=== PATIENT | male | born 1935 | race Caucasian/White ===

== ENCOUNTER 2017-08-04 17:29 | Emergency (ER) | payer MEDICARE, OTHER ==
[~2017-08-04] VITALS: Ht 172.7 cm; Wt 68.0 kg
[~2017-08-04 17:29] MED LIST: ALBU90OI INH; ALPR.5 PO; ANORO ELLIPTA1 EACH INH; DICL50ER PO; Prednisone20 MG PO; Tamiflu75 MG PO; Ventolin Soln3 ML INH; Ventolin5 MG/1 ML INH; Zithromax250 MG PO
[2017-08-04] MEDS ORDERED: Zithromax250 MG PO (20:01)
[2017-08-04] MEDS ORDERED: PRED20 PO (20:01)
== END 2017-08-04 20:08 | disposition home or self-care (01) ==
LOC: ER 17:29
DX: J44.1 Chronic obstructive pulmonary disease with (acute) exacerbation (principal); Z88.6 Allergy status to analgesic agent; Z88.1 Allergy status to other antibiotic agents; Z88.8 Allergy status to other drugs, medicaments and biological substances; Z79.899 Other long term (current) drug therapy
CPT/HCPCS: 71046; 96372; 99283; J2930

== ENCOUNTER 2017-09-03 22:28 | Emergency (ER) | payer MEDICARE, OTHER ==
[~2017-09-03] VITALS: Ht 170.2 cm; Wt 65.8 kg
[~2017-09-03 22:28] MED LIST changes: +PRED20 PO
[2017-09-03 22:45] LABS: PCO2 Arterial 37.2 mmHg (35-45); PO2 Arterial 68.2 mmHg (80-100); pH Blood Arterial 7.42 (7.35-7.45)
[2017-09-03 22:49] LABS: BASOPHILS ABSOLUTE AUTO 0.07 K/mm3 (0.00-0.23); BASOPHILS PERCENT AUTO 1 % (0-2); EOSINOPHILS ABSOLUTE AUTO 0.74 K/mm3 (0.00-0.68); EOSINOPHILS PERCENT AUTO 8 % (0-6); Hematocrit 44.2 % (37.0-53.0); Hemoglobin 15.1 g/dL (13.5-17.5); IMMATURE GRAN ABSOLUTE AUTO 0.01 K/mm3 (0.00-0.10); IMMATURE GRAN PERCENT AUTO 0 % (0-1); LYMPHOCYTES ABSOLUTE AUTO 3.34 K/mm3 (0.84-5.20); LYMPHOCYTES PERCENT AUTO 37 % (21-46); MONOCYTES ABSOLUTE AUTO 1.07 K/mm3 (0.16-1.47); MONOCYTES PERCENT AUTO 12 % (4-13); Mean Corpuscular HGB 32.1 pg (26.0-34.0); Mean Corpuscular HGB Conc 34.2 g/dL (31.5-36.5); Mean Corpuscular Volume 94 fL (80-100); Mean Platelet Volume 9.9 fL (9.1-12.4); NEUTROPHILS ABSOLUTE AUTO 3.81 K/mm3 (1.96-9.15); NEUTROPHILS PERCENT AUTO 42 % (41-73); Platelet Count 314 K/mm3 (150-400); RDW Coefficient Variation 11.9 % (11.7-14.2); RDW Standard Deviation 41.4 fL (35.1-46.3); White Blood Cell Count 9.04 K/mm3 (4.00-11.30)
[2017-09-03 23:15] LABS: Alanine Aminotransfer (ALT/SGP 32 U/L (12-78); Albumin, Blood 3.8 g/dL (3.4-5.0); Alk Phos 99 U/L (50-136); Anion Gap 8 mmol/L (6-16); Aspartate Aminotrans (AST/SGOT 24 U/L (12-37); Bilirubin, Total 1.2 mg/dL (0.1-1.0); Blood Urea Nitrogen 19 mg/dL (8-24); Bun/Creatinine Ratio 17.9 (12.0-20.0); CO2, Blood 27 mmol/L (21-32); Calcium, Blood 9.3 mg/dL (8.5-10.1); Chloride, Blood 104 mmol/L (98-108); Creatinine, Blood 1.06 mg/dL (0.60-1.20); Globulin, Blood 3.8 g/dL (2.2-4.0); Glomerular Filtration Rate >60 (60-); Glucose, Blood 71 mg/dL (70-99); Potassium, Blood 4.1 mmol/L (3.5-5.5); Sodium, Blood 139 mmol/L (136-145); Total Protein, Blood 7.6 g/dL (6.4-8.2); Troponin I <0.015 ng/mL (0.000-0.040)
[2017-09-03] MEDS ORDERED: Prednisone20 MG PO (23:53)
[2017-09-04] MEDS ORDERED: Ativan0.5 MG PO (00:49)
== END 2017-09-04 01:00 | disposition home or self-care (01) ==
LOC: ER 22:28
PROVIDERS: Physician Assistant
DX: J44.1 Chronic obstructive pulmonary disease with (acute) exacerbation (principal); Z88.6 Allergy status to analgesic agent; Z88.8 Allergy status to other drugs, medicaments and biological substances; Z88.1 Allergy status to other antibiotic agents; Z79.899 Other long term (current) drug therapy; Z79.52 Long term (current) use of systemic steroids
CPT/HCPCS: 36415; 36600; 71045; 80053; 82803; 83880; 84484; 85025; 93005; 93010; 94640; 99283; J7030

== ENCOUNTER 2017-11-02 15:05 | Emergency (ER) | payer MEDICARE, OTHER ==
[~2017-11-02] VITALS: Ht 170.2 cm; Wt 68.0 kg
[~2017-11-02 15:05] MED LIST changes: +Ativan0.5 MG PO
[2017-11-02 15:50] LABS: BASOPHILS ABSOLUTE AUTO 0.07 K/mm3 (0.00-0.23); BASOPHILS PERCENT AUTO 1 % (0-2); EOSINOPHILS PERCENT AUTO 9 % (0-6); Hemoglobin 13.7 g/dL (13.5-17.5); IMMATURE GRAN ABSOLUTE AUTO 0.01 K/mm3 (0.00-0.10); IMMATURE GRAN PERCENT AUTO 0 % (0-1); LYMPHOCYTES ABSOLUTE AUTO 1.84 K/mm3 (0.84-5.20); LYMPHOCYTES PERCENT AUTO 24 % (21-46); MONOCYTES ABSOLUTE AUTO 0.79 K/mm3 (0.16-1.47); MONOCYTES PERCENT AUTO 10 % (4-13); Mean Corpuscular HGB 32.1 pg (26.0-34.0); Mean Corpuscular HGB Conc 34.3 g/dL (31.5-36.5); Mean Corpuscular Volume 94 fL (80-100); Mean Platelet Volume 10.6 fL (9.1-12.4); NEUTROPHILS ABSOLUTE AUTO 4.38 K/mm3 (1.96-9.15); NEUTROPHILS PERCENT AUTO 56 % (41-73); Platelet Count 270 K/mm3 (150-400); RDW Coefficient Variation 11.9 % (11.7-14.2); RDW Standard Deviation 41.1 fL (35.1-46.3); Red Blood Cell Count 4.27 M/mm3 (4.30-5.90); White Blood Cell Count 7.79 K/mm3 (4.00-11.30)
[2017-11-02 16:11] LABS: Alanine Aminotransfer (ALT/SGP 20 U/L (12-78); Albumin, Blood 3.7 g/dL (3.4-5.0); Albumin/Globulin Ratio 1.2 (0.8-1.8); Alk Phos 89 U/L (50-136); Anion Gap 5 mmol/L (6-16); Aspartate Aminotrans (AST/SGOT 23 U/L (12-37); Bilirubin, Total 1.8 mg/dL (0.1-1.0); Blood Urea Nitrogen 14 mg/dL (8-24); Bun/Creatinine Ratio 13.7 (12.0-20.0); CO2, Blood 26 mmol/L (21-32); Chloride, Blood 107 mmol/L (98-108); Creatinine, Blood 1.02 mg/dL (0.60-1.20); Globulin, Blood 3.2 g/dL (2.2-4.0); Glomerular Filtration Rate >60 (60-); Glucose, Blood 97 mg/dL (70-99); Sodium, Blood 138 mmol/L (136-145); Total Protein, Blood 6.9 g/dL (6.4-8.2); Troponin I <0.015 ng/mL (0.000-0.040)
[2017-11-02 18:06] LABS: PCO2 Arterial 36 mmHg (35-45); PO2 Arterial 67 mmHg (80-100); pH Blood Arterial 7.45 (7.35-7.45)
[2017-11-02] MEDS ORDERED: Prednisone20 MG PO (18:52)
[2017-11-02] MEDS ORDERED: Mucinex600 MG PO (18:52)
[2017-11-02] MEDS ORDERED: BENZ100A PO (19:08)
== END 2017-11-02 19:44 | disposition home or self-care (01) ==
LOC: ER 15:05
PROVIDERS: Emergency Medicine; Physician Assistant
DX: J44.1 Chronic obstructive pulmonary disease with (acute) exacerbation (principal); Z88.6 Allergy status to analgesic agent; Z88.8 Allergy status to other drugs, medicaments and biological substances; Z88.1 Allergy status to other antibiotic agents; Z79.899 Other long term (current) drug therapy; Z79.51 Long term (current) use of inhaled steroids; Z87.891 Personal history of nicotine dependence
CPT/HCPCS: 36415; 36600; 71046; 80053; 82803; 83880; 84484; 85025; 93005; 93010; 94640; J2930

== ENCOUNTER 2018-08-25 23:22 | Emergency (ER) | payer MEDICARE, OTHER ==
[~2018-08-25] VITALS: Ht 170.2 cm; Wt 68.0 kg
[~2018-08-25 23:22] MED LIST changes: +BENZ100A PO; +Mucinex600 MG PO
[2018-08-25] MEDS ORDERED: BUDE6HFA INH (23:46)
[2018-08-25 23:50] LABS: BASOPHILS ABSOLUTE AUTO 0.03 K/mm3 (0.00-0.23); BASOPHILS PERCENT AUTO 0 % (0-2); EOSINOPHILS ABSOLUTE AUTO 0.01 K/mm3 (0.00-0.68); EOSINOPHILS PERCENT AUTO 0 % (0-6); Hematocrit 40.6 % (37.0-53.0); Hemoglobin 13.8 g/dL (13.5-17.5); IMMATURE GRAN ABSOLUTE AUTO 0.06 K/mm3 (0.00-0.10); IMMATURE GRAN PERCENT AUTO 0 % (0-1); LYMPHOCYTES ABSOLUTE AUTO 1.33 K/mm3 (0.84-5.20); LYMPHOCYTES PERCENT AUTO 8 % (21-46); MONOCYTES ABSOLUTE AUTO 1.11 K/mm3 (0.16-1.47); MONOCYTES PERCENT AUTO 7 % (4-13); Mean Corpuscular HGB 32.3 pg (26.0-34.0); Mean Corpuscular Volume 95 fL (80-100); Mean Platelet Volume 10.3 fL (9.1-12.4); NEUTROPHILS ABSOLUTE AUTO 14.26 K/mm3 (1.96-9.15); NEUTROPHILS PERCENT AUTO 85 % (41-73); Platelet Count 392 K/mm3 (150-400); RDW Coefficient Variation 11.8 % (11.7-14.2); RDW Standard Deviation 40.9 fL (35.1-46.3); Red Blood Cell Count 4.27 M/mm3 (4.30-5.90)
[2018-08-26 00:05] LABS: Alanine Aminotransfer (ALT/SGP 19 U/L (12-78); Albumin, Blood 3.9 g/dL (3.4-5.0); Alk Phos 97 U/L (50-136); Anion Gap 7 mmol/L (6-16); Aspartate Aminotrans (AST/SGOT 22 U/L (12-37); Bilirubin, Total 0.7 mg/dL (0.1-1.0); Blood Urea Nitrogen 28 mg/dL (8-24); Bun/Creatinine Ratio 25.9 (12.0-20.0); CO2, Blood 26 mmol/L (21-32); Calcium, Blood 9.8 mg/dL (8.5-10.1); Chloride, Blood 102 mmol/L (98-108); Creatinine, Blood 1.08 mg/dL (0.60-1.20); Globulin, Blood 3.8 g/dL (2.2-4.0); Glomerular Filtration Rate >60 (60-); Glucose, Blood 146 mg/dL (70-99); Potassium, Blood 4.5 mmol/L (3.5-5.5); Sodium, Blood 135 mmol/L (136-145); Total Protein, Blood 7.7 g/dL (6.4-8.2); Troponin I <0.015 ng/mL (0.000-0.040)
== END 2018-08-26 00:40 | disposition home or self-care (01) ==
LOC: ER 23:22
PROVIDERS: Physician Assistant
DX: F41.0 Panic disorder [episodic paroxysmal anxiety] (principal); J43.9 Emphysema, unspecified; Z87.891 Personal history of nicotine dependence; Z90.79 Acquired absence of other genital organ(s)
CPT/HCPCS: 71046; 80053; 84484; 85025; 93005; 93010; 99284-25

== ENCOUNTER → 2018-09-10 | Outpatient (CLI) | payer OTHER ==
[~2018-09-10] MED LIST changes: +ALPR.25 PO; +AZIT250 PO; +BUDE6HFA INH
[2018-09-10 11:24] LABS: BASOPHILS ABSOLUTE AUTO 0.04 K/mm3 (0.00-0.23); BASOPHILS PERCENT AUTO 0 % (0-2); EOSINOPHILS ABSOLUTE AUTO 0.16 K/mm3 (0.00-0.68); EOSINOPHILS PERCENT AUTO 2 % (0-6); Hematocrit 42.4 % (37.0-53.0); Hemoglobin 14.8 g/dL (13.5-17.5); IMMATURE GRAN ABSOLUTE AUTO 0.06 K/mm3 (0.00-0.10); IMMATURE GRAN PERCENT AUTO 1 % (0-1); LYMPHOCYTES ABSOLUTE AUTO 1.16 K/mm3 (0.84-5.20); LYMPHOCYTES PERCENT AUTO 11 % (21-46); MONOCYTES ABSOLUTE AUTO 0.85 K/mm3 (0.16-1.47); MONOCYTES PERCENT AUTO 8 % (4-13); Mean Corpuscular HGB 32.8 pg (26.0-34.0); Mean Corpuscular HGB Conc 34.9 g/dL (31.5-36.5); Mean Corpuscular Volume 94 fL (80-100); Mean Platelet Volume 10.2 fL (9.1-12.4); NEUTROPHILS ABSOLUTE AUTO 8.24 K/mm3 (1.96-9.15); NEUTROPHILS PERCENT AUTO 78 % (41-73); Platelet Count 239 K/mm3 (150-400); RDW Coefficient Variation 12.2 % (11.7-14.2); RDW Standard Deviation 42.4 fL (35.1-46.3); Red Blood Cell Count 4.51 M/mm3 (4.30-5.90); White Blood Cell Count 10.51 K/mm3 (4.00-11.30)
[2018-09-10 11:41] LABS: Alanine Aminotransfer (ALT/SGP 20 U/L (12-78); Albumin, Blood 3.5 g/dL (3.4-5.0); Albumin/Globulin Ratio 1.1 (0.8-1.8); Alk Phos 69 U/L (40-126); Anion Gap 10 mmol/L (6-16); Aspartate Aminotrans (AST/SGOT 23 U/L (12-37); Blood Urea Nitrogen 22 mg/dL (8-24); CO2, Blood 27 mmol/L (21-32); Calcium, Blood 9.1 mg/dL (8.5-10.1); Chloride, Blood 99 mmol/L (98-108); Creatinine, Blood 1.16 mg/dL (0.60-1.20); Globulin, Blood 3.2 g/dL (2.2-4.0); Glomerular Filtration Rate >60 (60-); Glucose, Blood 98 mg/dL (70-99); Potassium, Blood 4.4 mmol/L (3.5-5.5); Sodium, Blood 136 mmol/L (136-145); Total Protein, Blood 6.7 g/dL (6.4-8.2)
== END | disposition home or self-care (01) ==
LOC: LAB SHORT 11:20 → LAB EV 11:20
PROVIDERS: Physician Assistant Medical
DX: R58 Hemorrhage, not elsewhere classified (principal)
CPT/HCPCS: 80053; 85025; 85379

== ENCOUNTER → 2018-11-28 | Outpatient (CLI) | payer OTHER ==
[2018-11-28 11:57] LABS: BASOPHILS ABSOLUTE AUTO 0.04 K/mm3 (0.00-0.23); BASOPHILS PERCENT AUTO 0 % (0-2); EOSINOPHILS ABSOLUTE AUTO 0.15 K/mm3 (0.00-0.68); EOSINOPHILS PERCENT AUTO 2 % (0-6); Hematocrit 34.1 % (37.0-53.0); Hemoglobin 11.7 g/dL (13.5-17.5); IMMATURE GRAN ABSOLUTE AUTO 0.04 K/mm3 (0.00-0.10); IMMATURE GRAN PERCENT AUTO 0 % (0-1); LYMPHOCYTES PERCENT AUTO 11 % (21-46); MONOCYTES ABSOLUTE AUTO 0.73 K/mm3 (0.16-1.47); MONOCYTES PERCENT AUTO 8 % (4-13); Mean Corpuscular HGB 32.7 pg (26.0-34.0); Mean Corpuscular HGB Conc 34.3 g/dL (31.5-36.5); Mean Corpuscular Volume 95 fL (80-100); Mean Platelet Volume 10.1 fL (9.1-12.4); NEUTROPHILS ABSOLUTE AUTO 7.53 K/mm3 (1.96-9.15); NEUTROPHILS PERCENT AUTO 79 % (41-73); Platelet Count 382 K/mm3 (150-400); RDW Coefficient Variation 12.2 % (11.7-14.2); RDW Standard Deviation 43.2 fL (35.1-46.3); Red Blood Cell Count 3.58 M/mm3 (4.30-5.90); White Blood Cell Count 9.49 K/mm3 (4.00-11.30)
[2018-11-28 12:08] LABS: Alanine Aminotransfer (ALT/SGP 19 U/L (12-78); Albumin, Blood 3.6 g/dL (3.4-5.0); Alk Phos 94 U/L (40-126); Anion Gap 9 mmol/L (6-16); Aspartate Aminotrans (AST/SGOT 26 U/L (12-37); Bilirubin, Total 1.7 mg/dL (0.1-1.0); Blood Urea Nitrogen 19 mg/dL (8-24); Bun/Creatinine Ratio 17.9 (12.0-20.0); CO2, Blood 27 mmol/L (21-32); Calcium, Blood 9.3 mg/dL (8.5-10.1); Chloride, Blood 100 mmol/L (98-108); Creatinine, Blood 1.06 mg/dL (0.60-1.20); Globulin, Blood 3.5 g/dL (2.2-4.0); Glomerular Filtration Rate >60 (60-); Glucose, Blood 98 mg/dL (70-99); Potassium, Blood 4.3 mmol/L (3.5-5.5); Sodium, Blood 136 mmol/L (136-145); Total Protein, Blood 7.1 g/dL (6.4-8.2)
[2018-11-28 13:38] LABS: International Normalized Ratio 1.03; Prothrombin Time Results 10.9 Sec (9.7-11.5)
== END | disposition home or self-care (01) ==
LOC: LAB SHORT 11:49 → LAB EV 11:49
PROVIDERS: General Practice
DX: J44.9 Chronic obstructive pulmonary disease, unspecified (principal); R58 Hemorrhage, not elsewhere classified; R23.3 Spontaneous ecchymoses
CPT/HCPCS: 80053; 85025; 85610; 85651; 85730

== ENCOUNTER 2018-12-04 20:23 | Inpatient (IN) | payer OTHER ==
[~2018-12-04] VITALS: Ht 167.6 cm; Wt 66.7 kg
[2018-12-04 20:55] LABS: BASOPHILS ABSOLUTE AUTO 0.06 K/mm3 (0.00-0.23); BASOPHILS PERCENT AUTO 1 % (0-2); EOSINOPHILS ABSOLUTE AUTO 0.28 K/mm3 (0.00-0.68); EOSINOPHILS PERCENT AUTO 3 % (0-6); Hematocrit 33.5 % (37.0-53.0); Hemoglobin 10.9 g/dL (13.5-17.5); IMMATURE GRAN ABSOLUTE AUTO 0.01 K/mm3 (0.00-0.10); IMMATURE GRAN PERCENT AUTO 0 % (0-1); LYMPHOCYTES ABSOLUTE AUTO 2.19 K/mm3 (0.84-5.20); LYMPHOCYTES PERCENT AUTO 26 % (21-46); MONOCYTES ABSOLUTE AUTO 0.81 K/mm3 (0.16-1.47); MONOCYTES PERCENT AUTO 10 % (4-13); Mean Corpuscular HGB 32.3 pg (26.0-34.0); Mean Corpuscular HGB Conc 32.5 g/dL (31.5-36.5); Mean Corpuscular Volume 99 fL (80-100); Mean Platelet Volume 10.2 fL (9.1-12.4); NEUTROPHILS ABSOLUTE AUTO 5.07 K/mm3 (1.96-9.15); NEUTROPHILS PERCENT AUTO 60 % (41-73); Platelet Count 356 K/mm3 (150-400); RDW Coefficient Variation 12.1 % (11.7-14.2); RDW Standard Deviation 44.7 fL (35.1-46.3); Red Blood Cell Count 3.37 M/mm3 (4.30-5.90); White Blood Cell Count 8.42 K/mm3 (4.00-11.30)
[2018-12-04 21:13] LABS: Alanine Aminotransfer (ALT/SGP 20 U/L (12-78); Albumin, Blood 3.6 g/dL (3.4-5.0); Alk Phos 97 U/L (50-136); Anion Gap 8 mmol/L (6-16); Aspartate Aminotrans (AST/SGOT 14 U/L (12-37); Bilirubin, Total 1.5 mg/dL (0.1-1.0); Blood Urea Nitrogen 19 mg/dL (8-24); Bun/Creatinine Ratio 20.3 (12.0-20.0); CO2, Blood 27 mmol/L (21-32); Calcium, Blood 9.1 mg/dL (8.5-10.1); Chloride, Blood 105 mmol/L (98-108); Creatinine, Blood 0.94 mg/dL (0.60-1.20); Globulin, Blood 3.6 g/dL (2.2-4.0); Glomerular Filtration Rate >60 (60-); Glucose, Blood 92 mg/dL (70-99); Potassium, Blood 4.4 mmol/L (3.5-5.5); Sodium, Blood 140 mmol/L (136-145); Total Protein, Blood 7.2 g/dL (6.4-8.2)
[2018-12-04 21:42] LABS: International Normalized Ratio 1.03; Prothrombin Time Results 10.9 Sec (9.7-11.5)
[2018-12-05 05:05] LABS: Hematocrit 30.7 % (37.0-53.0); Hemoglobin 10.2 g/dL (13.5-17.5); Mean Corpuscular HGB 32.5 pg (26.0-34.0); Mean Corpuscular HGB Conc 33.2 g/dL (31.5-36.5); Mean Corpuscular Volume 98 fL (80-100); Mean Platelet Volume 10.5 fL (9.1-12.4); Platelet Count 324 K/mm3 (150-400); Red Blood Cell Count 3.14 M/mm3 (4.30-5.90); White Blood Cell Count 6.32 K/mm3 (4.00-11.30)
[2018-12-05 05:57] LABS: Alanine Aminotransfer (ALT/SGP 20 U/L (12-78); Albumin, Blood 3.6 g/dL (3.4-5.0); Albumin/Globulin Ratio 1.1 (0.8-1.8); Alk Phos 94 U/L (50-136); Anion Gap 7 mmol/L (6-16); Aspartate Aminotrans (AST/SGOT 16 U/L (12-37); Bilirubin, Total 1.7 mg/dL (0.1-1.0); Blood Urea Nitrogen 17 mg/dL (8-24); Bun/Creatinine Ratio 20.2 (12.0-20.0); CO2, Blood 25 mmol/L (21-32); Calcium, Blood 9.4 mg/dL (8.5-10.1); Chloride, Blood 104 mmol/L (98-108); Creatinine, Blood 0.84 mg/dL (0.60-1.20); Globulin, Blood 3.4 g/dL (2.2-4.0); Glomerular Filtration Rate >60 (60-); Glucose, Blood 142 mg/dL (70-99); Sodium, Blood 136 mmol/L (136-145)
--- NOTE | 2018-12-05 06:46 | NUR ---
SHIFT SUMMARY: PT ARRIVED TO UNIT VIA WC AT MIDNIGHT. HE WAS ACCOMPIED BY AND CHILDREN AND GRANDCHILD. HE TRANSFERRED INDEPENDANT TO THE BED. VS WERE WNL. REPORT OCCATIONAL OFF AND ON PAIN IN THE R LOWER DUENAS AREA TO FOOT. STATES IN THE PAST WEEK HE HAS HAD ALOT OF CHANGES. IT STARTED THAT SHE NOTICED 3 LARGE BRUISES ON HIS BACK SIDE. (1 ON RIGHT LOWER BACK AND COCCYX ON ADMISSION) A DAY OR 2 LATER SHE REPORTED HE GOT A SKIN TEAR X 2 SMALL ON LEFT ARM AND IT WOULD NOT STOP BLEEDING WENT TO URGENT CARE AND THEY DRESSED IT WHICH DRESSING WAS STILL IN PLACE WITH LARGE BLOOD CLOT UNDER THE DRESSING. DRESSING WAS CHANGED AND WOUND WAS CLEANSED, BOTH WERE SMALLER THEN A DIME AND WAS CLOTTED OFF, THEN HIS LEFT EYE STARTED TO BLEED, HE SAW DR LANDIS WHERE HE SENT HIM TO ER FOR 2 UNITS OF FFP. HE WAS SENT HOME WHICH A DAY AGO HIS RIGHT LOWER LEG STARTED TO HURT AND TURN RED. CURRENTLY IT IS YELLOWISH TO DUSKY COLOR FROM KNEE TO FOOT, PAIN IS OVER THE DUENAS AREA WHEN HE WALKS, FOOT IS COOL TO TOUCH AND SOME TINGLING IS REPORTED WITH SWELLING. THEN LAST NIGHT HIS LEFT EYE STARTED BLEEDING AGIAN. HE CAME TO THE ER. HIS PTT IS ELEVATED TO 86.4. HE HAD 1 UNTI OF FFP TONIGHT IN ER, AND SECOND ONE WAS ADMINISTERED ONCE HE GOT TO THE FLOOR. DRESSING TO LEFT EYE WAS SATURATED AND RUNNING DOWN HIS FACE WITH BRIGHT RED BLOOD. REMOVED AND HIS EYE HAD BRUSING UNDERNEATH IT, EYE ITSELF HAS SWELLING IN BOTH CORNERS, HE HAD BLOOD CLOT FORMING OVER HIS EYE, EYE WAS ALL RED AND DARKENED BUT HE REPORTS HE CAN SEE JUST FINE OUT OF IT. CLEANSED WITH WATER, IT CONTINUED TO BLEED DURING DRESSING CHANGE. HAD TO CHANGE DRESSING THREE TIMES THIS SHIFT. BLEEDING HAD STOPPED AFTER THE 2ND UNIT OF FFP. FAMILY WENT HOME AND PLANS TO RETURN IN AM. PATIENT FEEL ALSEEP AND WAS COMFORTABLE REST OF MORNING. HE DID VOID TWICE IN URINAL, INDEPENANT TO THE BATHROOM. REPORT GIVEN TO ONCOMING RN.
[2018-12-05] MEDS ORDERED: PRED10 PO (12:30)
--- NOTE | 2018-12-05 13:34 | NUR ---
DISCHARGE SUMMARY PATIENT A&O X4, INDEPENDENT IN ROOM. DENIES ANY PAIN, SOB, OR NAUSEA. DRESSING TO LEFT EYE INTACT, RN CHANGED DRESSING THIS SHIFT. HEMATOMA AND SWELLING PRESENT IN EYE BUT EYE IS NOT BLEEDING. PATIENT WENT HOME WITH DRESSING IN PLACE PER PATIENT REQUEST. PATIENT STATES RIGHT LEG HAS IMPROVED IN SWELLING SINCE YESTERDAY. LEG IS YELLOW IN COLOR. PATIENT STATES SOME OCCASIONAL TINGLING PRESENT BUT HAS IMPROVED SINCE YESTERDAY. DISCHARGE INSTRUCTIONS REVIEWED WITH THE PATIENT AND HIS FAMILY. NO NEW MEDICATIONS. IV D/C, WNL. FOLLOW UP APPOINTMENT WITH DR. LANDIS AND DR. VASQUEZ ALREADY SCHEDULED PER PATIENT . FAMILY ESCORTED PATIENT OUT VIA WHEELCAHIR, ALL BELONGINGS IN HAND.
== END 2018-12-05 13:49 | disposition home or self-care (01) | DRG 813 ==
LOC: ER 20:23 → MEDS 22:58
PROVIDERS: Emergency Medicine; ADMIT Internal Medicine
PROC: 30233K1 Transfusion of Nonautologous Frozen Plasma into Peripheral Vein, Percutaneous Approach (ICD-10-PCS; principal; 2018-12-04)
DX: D68.4 Acquired coagulation factor deficiency (principal); H11.30 Conjunctival hemorrhage, unspecified eye; Z85.51 Personal history of malignant neoplasm of bladder; Z85.46 Personal history of malignant neoplasm of prostate; J44.9 Chronic obstructive pulmonary disease, unspecified; S80.11XA Contusion of right lower leg, initial encounter; E78.5 Hyperlipidemia, unspecified; Z87.891 Personal history of nicotine dependence; E80.6 Other disorders of bilirubin metabolism
CPT/HCPCS: 36415; 36430; 80053; 85025; 85027; 85610; 85730; 86850; 86900; 86901; 93971; 99284-25; J2930; J7050; J7512; P9059

== ENCOUNTER 2018-12-15 16:55 | Inpatient (IN) | payer OTHER, SELFPAY ==
[~2018-12-15] VITALS: Ht 170.2 cm; Wt 75.0 kg
[~2018-12-15 16:55] MED LIST changes: -ALBU90OI INH; +PRED10 PO
[2018-12-15 17:48] LABS: BASOPHILS ABSOLUTE AUTO 0.02 K/mm3 (0.00-0.23); BASOPHILS PERCENT AUTO 0 % (0-2); EOSINOPHILS PERCENT AUTO 0 % (0-6); Hematocrit 24.1 % (37.0-53.0); Hemoglobin 7.7 g/dL (13.5-17.5); IMMATURE GRAN PERCENT AUTO 1 % (0-1); LYMPHOCYTES ABSOLUTE AUTO 0.58 K/mm3 (0.84-5.20); LYMPHOCYTES PERCENT AUTO 4 % (21-46); MONOCYTES ABSOLUTE AUTO 0.41 K/mm3 (0.16-1.47); MONOCYTES PERCENT AUTO 3 % (4-13); Mean Corpuscular HGB 32.8 pg (26.0-34.0); NEUTROPHILS PERCENT AUTO 93 % (41-73); Platelet Count 257 K/mm3 (150-400); RDW Standard Deviation 47.8 fL (35.1-46.3); Red Blood Cell Count 2.35 M/mm3 (4.30-5.90); White Blood Cell Count 16.51 K/mm3 (4.00-11.30)
[2018-12-15 17:49] LABS: Mean Corpuscular Volume 103 fL (80-100)
[2018-12-15 18:03] LABS: Alanine Aminotransfer (ALT/SGP 39 U/L (12-78); Albumin, Blood 2.8 g/dL (3.4-5.0); Albumin/Globulin Ratio 1.2 (0.8-1.8); Alk Phos 65 U/L (50-136); Anion Gap 4 mmol/L (6-16); Aspartate Aminotrans (AST/SGOT 26 U/L (12-37); Bilirubin, Total 1.5 mg/dL (0.1-1.0); Blood Urea Nitrogen 29 mg/dL (8-24); Bun/Creatinine Ratio 24.2 (12.0-20.0); CO2, Blood 28 mmol/L (21-32); Calcium, Blood 8.4 mg/dL (8.5-10.1); Chloride, Blood 102 mmol/L (98-108); Globulin, Blood 2.4 g/dL (2.2-4.0); Glomerular Filtration Rate >60 (60-); Glucose, Blood 188 mg/dL (70-99); Potassium, Blood 5.2 mmol/L (3.5-5.5); Sodium, Blood 134 mmol/L (136-145); Total Protein, Blood 5.2 g/dL (6.4-8.2)
[2018-12-15 18:08] LABS: International Normalized Ratio 1.03; Prothrombin Time Results 10.9 Sec (9.7-11.5)
[2018-12-15] MEDS ORDERED: ALBU90OI INH (18:50)
[2018-12-15] MEDS ORDERED: ALPR.5 PO (18:58)
[2018-12-15] MEDS ORDERED: BUDESONIDE NEB (19:00)
[2018-12-15 19:34] LABS: Hematocrit 24.6 % (37.0-53.0); Hemoglobin 8.1 g/dL (13.5-17.5)
[2018-12-15] MEDS ORDERED: BUDE6HFA INH (21:00)
[2018-12-15] MEDS ORDERED: PRED10 PO (21:01)
--- NOTE | 2018-12-16 06:06 | NUR ---
SHIFT SUMMARY PATIENT IS ALERT AND ORIENTED, ARRIVED TO ROOM VIA STRETCHER. PT ON ROOM AIR. PATIENT RECIEVED 2UNITS OF FFP ON THE FLOOR AND 2UNITS OF PRBC. PATIENT TOLERATED BOTH WELL. PT DID COMPLAIN OF MILD PAIN AND REQUESTED A PAIN PILL. PATIENT SLEPT WELL THROUGHOUT THE NIGHT. VITALS HAVE BEEN STABLE. NO NEW CHANGES IN STATUS NOTED DURING SHIFT.
[2018-12-16 07:51] LABS: Hematocrit 25.3 % (37.0-53.0); Hemoglobin 8.4 g/dL (13.5-17.5)
[2018-12-16 07:52] LABS: BASOPHILS ABSOLUTE AUTO 0.01 K/mm3 (0.00-0.23); BASOPHILS PERCENT AUTO 0 % (0-2); EOSINOPHILS ABSOLUTE AUTO 0.03 K/mm3 (0.00-0.68); EOSINOPHILS PERCENT AUTO 0 % (0-6); Hematocrit 25.1 % (37.0-53.0); Hemoglobin 8.2 g/dL (13.5-17.5); IMMATURE GRAN ABSOLUTE AUTO 0.11 K/mm3 (0.00-0.10); IMMATURE GRAN PERCENT AUTO 1 % (0-1); LYMPHOCYTES ABSOLUTE AUTO 2.14 K/mm3 (0.84-5.20); LYMPHOCYTES PERCENT AUTO 14 % (21-46); MONOCYTES ABSOLUTE AUTO 1.28 K/mm3 (0.16-1.47); MONOCYTES PERCENT AUTO 8 % (4-13); Mean Corpuscular HGB 30.7 pg (26.0-34.0); Mean Corpuscular HGB Conc 32.7 g/dL (31.5-36.5); Mean Platelet Volume 10.3 fL (9.1-12.4); NEUTROPHILS ABSOLUTE AUTO 11.84 K/mm3 (1.96-9.15); NEUTROPHILS PERCENT AUTO 77 % (41-73); Platelet Count 183 K/mm3 (150-400); RDW Coefficient Variation 16.4 % (11.7-14.2); RDW Standard Deviation 55.7 fL (35.1-46.3); Red Blood Cell Count 2.67 M/mm3 (4.30-5.90); White Blood Cell Count 15.41 K/mm3 (4.00-11.30)
[2018-12-16 07:54] LABS: Mean Corpuscular Volume 94 fL (80-100)
[2018-12-16 08:08] LABS: Anion Gap 4 mmol/L (6-16); Blood Urea Nitrogen 26 mg/dL (8-24); Bun/Creatinine Ratio 26.4 (12.0-20.0); CO2, Blood 31 mmol/L (21-32); Calcium, Blood 8.7 mg/dL (8.5-10.1); Chloride, Blood 102 mmol/L (98-108); Creatinine, Blood 0.99 mg/dL (0.60-1.20); Glomerular Filtration Rate >60 (60-); Glucose, Blood 108 mg/dL (70-99); Potassium, Blood 4.2 mmol/L (3.5-5.5); Sodium, Blood 137 mmol/L (136-145)
--- NOTE | 2018-12-16 10:55 | NUR ---
PT TRANSPORTED TO PCU 12 ACCOMPANIED BY CHARGE,RN AND HOSPITAL SALES REPRESENTATIVE AND IN NO ACUTE DISTRESS. REPORT GIVEN PRIOR TO TRANSFER.
--- NOTE | 2018-12-16 11:12 | NUR ---
ASSUMED CARE PT ALERT AND ORIENTED. VS STABLE. O2 SATS REMAIN ABOVE 90% ON RA. PT DENIES ANY PAIN, BUT WAS MEDICATED PRIOR TO ARRIVAL FOR PAIN IN HIS LOWER BACK. BACK ON RIGHT SIDE UP TO HIS ARM PIT IS SWOLLEN AND PT STATES IT IS WORSE THAN THIS MORNING. PER REPORT MD IS AWARE. IV IG INFUSING PER ORDERS. WILL MONITOR CLOSELY FOR ANY SIGNS OF REACTION. FAMILY AT BEDSIDE.
[2018-12-16 11:29] LABS: Hematocrit 23.9 % (37.0-53.0); Hemoglobin 7.9 g/dL (13.5-17.5)
--- NOTE | 2018-12-16 13:09 | NUR ---
SPOKE WITH DR. SAMS ABOUT HGB. WILL AWAIT ORDERS. VS STABLE. IV IG INFUSING AT THIS TIME.
--- NOTE | 2018-12-16 17:56 | NUR ---
SHIFT SUMMARY PT ALERT AND ORIENTED. VS STABLE. INFUSION OF IG IS COMPLETE AT THIS TIME. 1U PRBC INFUSING AT THIS TIME. PT DENIES ANY PAIN, BUT STATES UPPER RIGHT BACK IS TENDER TO PALPATION. FAMILY AT BEDSIDE. PT DENIES FEELING DIZZY OR SOB. WILL CONTINUE TO MONITOR CLOSELY AND REPORT TO ONCOMING RN. CALL LIGHT IN REACH.
[2018-12-16 19:41] LABS: Hematocrit 24.3 % (37.0-53.0); Hemoglobin 8.1 g/dL (13.5-17.5)
[2018-12-17 04:24] LABS: BASOPHILS ABSOLUTE AUTO 0.01 K/mm3 (0.00-0.23); BASOPHILS PERCENT AUTO 0 % (0-2); EOSINOPHILS PERCENT AUTO 0 % (0-6); Hematocrit 23.7 % (37.0-53.0); Hemoglobin 8.1 g/dL (13.5-17.5); IMMATURE GRAN ABSOLUTE AUTO 0.17 K/mm3 (0.00-0.10); IMMATURE GRAN PERCENT AUTO 1 % (0-1); LYMPHOCYTES ABSOLUTE AUTO 0.98 K/mm3 (0.84-5.20); LYMPHOCYTES PERCENT AUTO 6 % (21-46); MONOCYTES ABSOLUTE AUTO 1.52 K/mm3 (0.16-1.47); MONOCYTES PERCENT AUTO 9 % (4-13); Mean Corpuscular HGB 31.5 pg (26.0-34.0); Mean Corpuscular HGB Conc 34.2 g/dL (31.5-36.5); Mean Corpuscular Volume 92 fL (80-100); Mean Platelet Volume 10.7 fL (9.1-12.4); NEUTROPHILS ABSOLUTE AUTO 14.86 K/mm3 (1.96-9.15); NEUTROPHILS PERCENT AUTO 85 % (41-73); NRBC ABSOLUTE 0.02 K/mm3 (0.00-0.02); NRBC Auto 0.1 /100 WBC (0.0-0.2); Platelet Count 141 K/mm3 (150-400); RDW Coefficient Variation 16.6 % (11.7-14.2); RDW Standard Deviation 54.8 fL (35.1-46.3); Red Blood Cell Count 2.57 M/mm3 (4.30-5.90); White Blood Cell Count 17.54 K/mm3 (4.00-11.30)
[2018-12-17 04:47] LABS: Alanine Aminotransfer (ALT/SGP 20 U/L (12-78); Albumin, Blood 2.2 g/dL (3.4-5.0); Albumin/Globulin Ratio 0.4 (0.8-1.8); Alk Phos 48 U/L (50-136); Anion Gap 3 mmol/L (6-16); Aspartate Aminotrans (AST/SGOT 18 U/L (12-37); Bilirubin, Total 2.7 mg/dL (0.1-1.0); Blood Urea Nitrogen 27 mg/dL (8-24); Bun/Creatinine Ratio 28.8 (12.0-20.0); CO2, Blood 28 mmol/L (21-32); Calcium, Blood 8.2 mg/dL (8.5-10.1); Chloride, Blood 103 mmol/L (98-108); Creatinine, Blood 0.94 mg/dL (0.60-1.20); Globulin, Blood 5.3 g/dL (2.2-4.0); Glomerular Filtration Rate >60 (60-); Glucose, Blood 124 mg/dL (70-99); Potassium, Blood 4.9 mmol/L (3.5-5.5); Sodium, Blood 134 mmol/L (136-145)
[2018-12-17 04:48] LABS: Total Protein, Blood 7.5 g/dL (6.4-8.2)
--- NOTE | 2018-12-17 05:43 | NUR ---
PCU NOC SHIFT SUMMARY PATIENT ALERT AND ORIENTED X4. RESP E/U AT REST. PATIENT HAS LARGE HEMATOMA ON RIGHT UPPER BACK THAT WRAPS AROUND TO HIS RIGHT UPPER CHEST/BREAST AREA AND TIGHT FIRM SKIN NOTED DOWN RIGHT SIDE TO HIP. HARDNESS AND SWELLING HAS INCREASED W/O SHIFT. 1 UNIT OF PRBC GIVEN THIS SHIFT. PATIENT REPORTS PAIN WITH SWELLING RELIEVED WITH MEDICATIONS PER EMAR. VSS T/O SHIFT. PATIENT ON TELE T/O SHIFT. SLEPT AT BEDSIDE. PATIENT NEEDS TO BE AT 90 DEGREES TO SWOLLOW MEDICATIONS HE HAS SOME DIFFICULTY. NO FURTHER NEEDS ASSESSED. WILL AWAIT MD ORDERS FOR PLAN OF CARE WITH THIS PATIENT HAS HE MAY NEED TO TRANSFER UP [place] DUE TO HIS FACTOR 8 CLOTTING ISSUES AND CONTINUED EXPANSION OF HIS HEMATOMA. WILL CONTINUE TO MONITOR AND REPORT TO DAYSHIFT RN.
[2018-12-17 14:28] LABS: Hemoglobin 6.5 g/dL (13.5-17.5)
--- NOTE | 2018-12-17 15:00 | NUR ---
CALLED DR. LANDIS ABOUT HGB AND PTT. NEW ORDERS FOR 2U PRBC AND 1U FFP TO BE INFUSED. WILL RECHECK LAB AFTER INFUSION. PT STABLE AT THIS TIME. SWELLING IN RIGHT BACK HAS NOT CHANGED SINCE INITIAL ASSESSMENT. BRUISING HAS INCREASED. AREA IS TENDER TO PALPATION AND SKIN IS TIGHT. WILL CONTINUE TO MONITOR CLOSELY.
--- NOTE | 2018-12-17 19:10 | NUR ---
SHIFT SUMMARY PT ALERT AND ORIENTED. VS STABLE. 02 SATS HAVE REMAINED ABOVE 90% ON RA. 1U PRBC HAS BEEN INFUSED AND SECOND UNIT INFUSING AT THIS TIME. PT TOLERATED INFUSION WITH NO SIGNS OR SYMPTOMS OF REACTION. SWELLING IN BACK TO ABD AND RIGHT BREAST IS UNCHANGED THIS SHIFT. BRUISING HAS INCREASED THROUGHOUT RIGHT SIDE. DR. LANDIS AWARE OF SWELLING AND CHANGES IN BRUISING. PT COMPLAINED OF PAIN IN RIGHT SIDE THAT WAS RELIEVED WITH MEDICATION ADMINISTRATION. PER DR. LANDIS PT WAS TO RECEIVE [facility]CC INFUSION Q8 HOURS FOR 3 DAYS, BUT PHARMACY STATES WE ONLY HAD THE ONE DOSE AND DR. LANDIS HAD BEEN NOTIFIED. FAMILY INFORMED. REPORT GIVEN TO SLICE CUTTING MACHINE OPERATOR HELPER RN.
[2018-12-17 23:45] LABS: Hematocrit 22.1 % (37.0-53.0); Hemoglobin 7.8 g/dL (13.5-17.5)
--- NOTE | 2018-12-18 04:04 | NUR ---
SHIFT SUMMARY: PATIENT REMAINED STABLE THIS SHIFT ALTHOUGH POST INFUSION LABS INDICATED THAT HIS APTT IS INCREASED AGAIN AND HIS HGB ONLY INCREASED FROM 6.5 TO 7.8. ALL OTHER VSS, PATIENT SLEPT WELL THIS SHIF, AT BEDSIDE, NO OTHER ISSUES NOTED.
[2018-12-18 04:26] LABS: BASOPHILS ABSOLUTE AUTO 0.01 K/mm3 (0.00-0.23); BASOPHILS PERCENT AUTO 0 % (0-2); EOSINOPHILS PERCENT AUTO 0 % (0-6); Hematocrit 21.4 % (37.0-53.0); Hemoglobin 7.5 g/dL (13.5-17.5); IMMATURE GRAN ABSOLUTE AUTO 0.11 K/mm3 (0.00-0.10); IMMATURE GRAN PERCENT AUTO 1 % (0-1); LYMPHOCYTES ABSOLUTE AUTO 0.81 K/mm3 (0.84-5.20); LYMPHOCYTES PERCENT AUTO 6 % (21-46); MONOCYTES ABSOLUTE AUTO 1.15 K/mm3 (0.16-1.47); MONOCYTES PERCENT AUTO 8 % (4-13); Mean Corpuscular HGB 31.3 pg (26.0-34.0); Mean Platelet Volume 10.7 fL (9.1-12.4); NEUTROPHILS ABSOLUTE AUTO 11.57 K/mm3 (1.96-9.15); NEUTROPHILS PERCENT AUTO 85 % (41-73); NRBC ABSOLUTE 0.03 K/mm3 (0.00-0.02); NRBC Auto 0.2 /100 WBC (0.0-0.2); Platelet Count 95 K/mm3 (150-400); RDW Coefficient Variation 16.3 % (11.7-14.2); RDW Standard Deviation 52.4 fL (35.1-46.3); White Blood Cell Count 13.65 K/mm3 (4.00-11.30)
[2018-12-18 04:29] LABS: Mean Corpuscular Volume 89 fL (80-100)
[2018-12-18 04:53] LABS: Alanine Aminotransfer (ALT/SGP 20 U/L (12-78); Albumin, Blood 2.2 g/dL (3.4-5.0); Albumin/Globulin Ratio 0.3 (0.8-1.8); Alk Phos 45 U/L (50-136); Anion Gap 2 mmol/L (6-16); Aspartate Aminotrans (AST/SGOT 15 U/L (12-37); Bilirubin, Total 2.4 mg/dL (0.1-1.0); Blood Urea Nitrogen 24 mg/dL (8-24); Bun/Creatinine Ratio 26.9 (12.0-20.0); CO2, Blood 29 mmol/L (21-32); Calcium, Blood 8.5 mg/dL (8.5-10.1); Chloride, Blood 101 mmol/L (98-108); Creatinine, Blood 0.89 mg/dL (0.60-1.20); Globulin, Blood 6.6 g/dL (2.2-4.0); Glomerular Filtration Rate >60 (60-); Glucose, Blood 117 mg/dL (70-99); Potassium, Blood 4.2 mmol/L (3.5-5.5); Sodium, Blood 132 mmol/L (136-145); Total Protein, Blood 8.8 g/dL (6.4-8.2)
--- NOTE | 2018-12-18 08:24 | NUR ---
NURSING PCU DAYSHIFT: Assumed care of pt at approx 0700. A/O, pleasant, cooperative w/care. Denies any pain/discomfort at this time. Skin is fragile w/several small bruises scattered t/o ext's, large hematoma to R side extending to back and R axillary area, swollen and tender w/palp. Mild general weakness, able to reposition independently. Tele in place, NSR w/PVC's, no c/o CP/pressure, SBP 140 prior to a.m. meds, no noted LE edema. L/S dim t/o, respirations shallow, O2 sat upper 90's on RA, denies dyspnea. Abd firm, tender w/palp, BT hypoactive, passing gas per pt, voiding w/o difficulty per pt. PIV x2, s/l. Pt seen by oncologist and PMD this a.m., new d/o received. Will transfer to [facility], accepting doctor received, awaiting bed assignment. Plan of care discussed w/pt and family, all questions addressed, deny any further questions/needs at this time. Call light in reach, cont to monitor for any changes.
--- NOTE | 2018-12-18 16:41 | NUR ---
NURSING PCU DAYSHIFT SUMMARY: No significant changes noted t/o the shift. Respiratory and cardiac status unchanged. Seen by PMD and oncology, plan for transfer to [facility], awaiting bed assignment. Family has been at bedside t/o shift, plan of care and updates discussed t/o the day. Pt has c/o pain intermittently, treating successfully w/meds as ordered. Swelling appears to be extending to L flank and increased to lower abd, some bruising noted on L flank as well. Pt received FFP x1 as ordered as well as a dose of Kcentra. Pt and family deny any questions/needs at this time. H/H scheduled to be drawn this evening w/labs also scheduled for a.m. Call light in reach, cont to monitor until rpt is given to MAYITO RN.
[2018-12-18 17:41] LABS: Hematocrit 24.3 % (37.0-53.0); Hemoglobin 8.3 g/dL (13.5-17.5)
--- NOTE | 2018-12-18 19:40 | NUR ---
NURSING PCU COBRA TRANSFER SUMMARY: Bed assignment received from [facility], family notified. EMS transport arrived at approx 1920, pt left from unit at approx 1930. Telephone report provided to accepting RN, all questions addressed. No s/s of acute distress at time of xfer.
== END 2018-12-18 19:35 | disposition short-term general hospital (02) | DRG 813 ==
LOC: ER 16:55 → MEDS 16:56 → PCU 12-16 12:04
PROVIDERS: Emergency Medicine; Internal Medicine; ADMIT Hospitalist
PROC: 30233K1 Transfusion of Nonautologous Frozen Plasma into Peripheral Vein, Percutaneous Approach (ICD-10-PCS; principal; 2018-12-15)
PROC: 30233N1 Transfusion of Nonautologous Red Blood Cells into Peripheral Vein, Percutaneous Approach (ICD-10-PCS; 2018-12-15)
PROC: 30283B1 Transfusion of Nonautologous 4-Factor Prothrombin Complex Concentrate into Vein, Percutaneous Approach (ICD-10-PCS; 2018-12-15)
DX: D68.4 Acquired coagulation factor deficiency (principal); D62 Acute posthemorrhagic anemia; Z85.46 Personal history of malignant neoplasm of prostate; E78.5 Hyperlipidemia, unspecified; Z87.891 Personal history of nicotine dependence; J43.9 Emphysema, unspecified; Z90.79 Acquired absence of other genital organ(s); H11.30 Conjunctival hemorrhage, unspecified eye; S20.221A Contusion of right back wall of thorax, initial encounter; Y92.9 Unspecified place or not applicable
CPT/HCPCS: 36415; 36430; 71250; 80048; 80053; 85014; 85018; 85025; 85610; 85730; 86850; 86900; 86901; 86923; 93005; 93010; 94640; 94760; 99285-25; A9270-GY; C9132; G0378; J1568; J3010; J7040; J7512; J8530; P9012; P9016; P9059

== ENCOUNTER 2019-01-19 00:45 | Day surgery (SDC) | payer OTHER ==
[~2019-01-19 00:45] MED LIST changes: +ALBU90OI INH; +BUDESONIDE NEB
[2019-01-19 11:46] LABS: BASOPHILS ABSOLUTE AUTO 0.01 K/mm3 (0.00-0.23); BASOPHILS PERCENT AUTO 0 % (0-2); EOSINOPHILS PERCENT AUTO 0 % (0-6); Hematocrit 37.1 % (37.0-53.0); Hemoglobin 12.3 g/dL (13.5-17.5); IMMATURE GRAN ABSOLUTE AUTO 0.02 K/mm3 (0.00-0.10); IMMATURE GRAN PERCENT AUTO 0 % (0-1); LYMPHOCYTES ABSOLUTE AUTO 0.41 K/mm3 (0.84-5.20); LYMPHOCYTES PERCENT AUTO 7 % (21-46); MONOCYTES ABSOLUTE AUTO 0.13 K/mm3 (0.16-1.47); MONOCYTES PERCENT AUTO 2 % (4-13); Mean Corpuscular HGB Conc 33.2 g/dL (31.5-36.5); Mean Corpuscular Volume 100 fL (80-100); Mean Platelet Volume 10.3 fL (9.1-12.4); NEUTROPHILS ABSOLUTE AUTO 5.36 K/mm3 (1.96-9.15); NEUTROPHILS PERCENT AUTO 90 % (41-73); Platelet Count 174 K/mm3 (150-400); RDW Coefficient Variation 17.6 % (11.7-14.2); RDW Standard Deviation 64.2 fL (35.1-46.3); Red Blood Cell Count 3.73 M/mm3 (4.30-5.90); White Blood Cell Count 5.93 K/mm3 (4.00-11.30)
== END 2019-01-19 22:40 | disposition home or self-care (01) ==
LOC: ATC 00:45
DX: D68.51 Activated protein C resistance (principal); Z88.1 Allergy status to other antibiotic agents; Z95.828 Presence of other vascular implants and grafts
CPT/HCPCS: 36415; 36591; 85025

== ENCOUNTER 2019-01-22 10:56 | Day surgery (SDC) | payer OTHER ==
[2019-01-22 11:32] LABS: BASOPHILS ABSOLUTE AUTO 0.02 K/mm3 (0.00-0.23); BASOPHILS PERCENT AUTO 0 % (0-2); EOSINOPHILS ABSOLUTE AUTO 0.02 K/mm3 (0.00-0.68); EOSINOPHILS PERCENT AUTO 0 % (0-6); Hematocrit 37.6 % (37.0-53.0); Hemoglobin 12.6 g/dL (13.5-17.5); IMMATURE GRAN ABSOLUTE AUTO 0.04 K/mm3 (0.00-0.10); IMMATURE GRAN PERCENT AUTO 1 % (0-1); LYMPHOCYTES ABSOLUTE AUTO 0.42 K/mm3 (0.84-5.20); LYMPHOCYTES PERCENT AUTO 7 % (21-46); MONOCYTES ABSOLUTE AUTO 0.24 K/mm3 (0.16-1.47); MONOCYTES PERCENT AUTO 4 % (4-13); Mean Corpuscular HGB 32.7 pg (26.0-34.0); Mean Corpuscular HGB Conc 33.5 g/dL (31.5-36.5); Mean Corpuscular Volume 98 fL (80-100); NEUTROPHILS ABSOLUTE AUTO 5.62 K/mm3 (1.96-9.15); NEUTROPHILS PERCENT AUTO 88 % (41-73); Platelet Count 195 K/mm3 (150-400); RDW Coefficient Variation 17.1 % (11.7-14.2); RDW Standard Deviation 61.1 fL (35.1-46.3); Red Blood Cell Count 3.85 M/mm3 (4.30-5.90); White Blood Cell Count 6.36 K/mm3 (4.00-11.30)
--- NOTE | 2019-01-22 11:48 | NUR ---
PT DC'D IN STABLE CONDITION @ 1125.
== END 2019-01-22 11:25 | disposition home or self-care (01) ==
LOC: ATC 10:56
DX: D68.51 Activated protein C resistance (principal); J90 Pleural effusion, not elsewhere classified; D66 Hereditary factor VIII deficiency; Z79.899 Other long term (current) drug therapy; Z79.52 Long term (current) use of systemic steroids; Z88.8 Allergy status to other drugs, medicaments and biological substances; Z88.1 Allergy status to other antibiotic agents
CPT/HCPCS: 36592; 85025

== ENCOUNTER 2019-01-26 09:00 | Day surgery (SDC) | payer OTHER ==
[2019-01-26 09:41] LABS: BASOPHILS ABSOLUTE AUTO 0.01 K/mm3 (0.00-0.23); BASOPHILS PERCENT AUTO 0 % (0-2); EOSINOPHILS ABSOLUTE AUTO 0.02 K/mm3 (0.00-0.68); EOSINOPHILS PERCENT AUTO 0 % (0-6); Hematocrit 37.9 % (37.0-53.0); Hemoglobin 12.9 g/dL (13.5-17.5); IMMATURE GRAN ABSOLUTE AUTO 0.05 K/mm3 (0.00-0.10); IMMATURE GRAN PERCENT AUTO 1 % (0-1); LYMPHOCYTES PERCENT AUTO 6 % (21-46); MONOCYTES ABSOLUTE AUTO 0.26 K/mm3 (0.16-1.47); MONOCYTES PERCENT AUTO 3 % (4-13); Mean Corpuscular HGB 33.5 pg (26.0-34.0); Mean Corpuscular Volume 98 fL (80-100); Mean Platelet Volume 10.2 fL (9.1-12.4); NEUTROPHILS ABSOLUTE AUTO 6.98 K/mm3 (1.96-9.15); NEUTROPHILS PERCENT AUTO 89 % (41-73); Platelet Count 193 K/mm3 (150-400); RDW Coefficient Variation 16.6 % (11.7-14.2); RDW Standard Deviation 60.5 fL (35.1-46.3); Red Blood Cell Count 3.85 M/mm3 (4.30-5.90); White Blood Cell Count 7.82 K/mm3 (4.00-11.30)
[2019-01-26] MEDS ORDERED: [UNRECOGNIZED DRUG - OTHER] IV (12:14)
--- NOTE | 2019-01-26 12:20 | NUR ---
CBC RESULTS FROM TODAY FAXED TO [facility].
== END 2019-01-26 09:32 | disposition home or self-care (01) ==
LOC: ATC 09:00
DX: D66 Hereditary factor VIII deficiency (principal); Z79.899 Other long term (current) drug therapy; Z79.52 Long term (current) use of systemic steroids; Z88.1 Allergy status to other antibiotic agents; Z88.8 Allergy status to other drugs, medicaments and biological substances
CPT/HCPCS: 36592; 85025

== ENCOUNTER 2019-02-02 00:03 | Day surgery (SDC) | payer OTHER ==
[~2019-02-02 00:03] MED LIST changes: +[UNRECOGNIZED DRUG - OTHER] IV
[2019-02-02 11:46] LABS: BASOPHILS ABSOLUTE AUTO 0.01 K/mm3 (0.00-0.23); BASOPHILS PERCENT AUTO 0 % (0-2); EOSINOPHILS PERCENT AUTO 0 % (0-6); Hematocrit 39.4 % (37.0-53.0); Hemoglobin 13.4 g/dL (13.5-17.5); Mean Corpuscular HGB 33.3 pg (26.0-34.0); Mean Corpuscular Volume 98 fL (80-100); Mean Platelet Volume 10.4 fL (9.1-12.4); Platelet Count 151 K/mm3 (150-400); RDW Coefficient Variation 16.3 % (11.7-14.2); RDW Standard Deviation 58.9 fL (35.1-46.3); Red Blood Cell Count 4.03 M/mm3 (4.30-5.90); White Blood Cell Count 6.39 K/mm3 (4.00-11.30)
[2019-02-02 11:48] LABS: IMMATURE GRAN ABSOLUTE AUTO 0.05 K/mm3 (0.00-0.10); IMMATURE GRAN PERCENT AUTO 1 % (0-1); LYMPHOCYTES ABSOLUTE AUTO 0.95 K/mm3 (0.84-5.20); LYMPHOCYTES PERCENT AUTO 15 % (21-46); MONOCYTES ABSOLUTE AUTO 0.13 K/mm3 (0.16-1.47); MONOCYTES PERCENT AUTO 2 % (4-13); NEUTROPHILS ABSOLUTE AUTO 5.25 K/mm3 (1.96-9.15); NEUTROPHILS PERCENT AUTO 82 % (41-73)
== END 2019-02-02 11:30 | disposition home or self-care (01) ==
LOC: ATC 00:03
PROVIDERS: Internal Medicine Hematology & Oncology
DX: D68.51 Activated protein C resistance (principal); D66 Hereditary factor VIII deficiency; J90 Pleural effusion, not elsewhere classified; Z79.899 Other long term (current) drug therapy; Z79.52 Long term (current) use of systemic steroids; Z88.1 Allergy status to other antibiotic agents
CPT/HCPCS: 36592; 85025

== ENCOUNTER 2019-02-05 00:03 | Day surgery (SDC) | payer OTHER, SELFPAY ==
[2019-02-05 11:52] LABS: BASOPHILS ABSOLUTE AUTO 0.02 K/mm3 (0.00-0.23); BASOPHILS PERCENT AUTO 0 % (0-2); EOSINOPHILS PERCENT AUTO 0 % (0-6); Hematocrit 39.2 % (37.0-53.0); Hemoglobin 13.3 g/dL (13.5-17.5); IMMATURE GRAN ABSOLUTE AUTO 0.08 K/mm3 (0.00-0.10); IMMATURE GRAN PERCENT AUTO 1 % (0-1); LYMPHOCYTES ABSOLUTE AUTO 1.13 K/mm3 (0.84-5.20); LYMPHOCYTES PERCENT AUTO 16 % (21-46); MONOCYTES ABSOLUTE AUTO 0.15 K/mm3 (0.16-1.47); MONOCYTES PERCENT AUTO 2 % (4-13); Mean Corpuscular HGB 33.3 pg (26.0-34.0); Mean Corpuscular HGB Conc 33.9 g/dL (31.5-36.5); Mean Corpuscular Volume 98 fL (80-100); Mean Platelet Volume 10.8 fL (9.1-12.4); NEUTROPHILS ABSOLUTE AUTO 5.83 K/mm3 (1.96-9.15); NEUTROPHILS PERCENT AUTO 81 % (41-73); Platelet Count 127 K/mm3 (150-400); RDW Coefficient Variation 16.2 % (11.7-14.2); RDW Standard Deviation 59.1 fL (35.1-46.3); Red Blood Cell Count 3.99 M/mm3 (4.30-5.90); White Blood Cell Count 7.21 K/mm3 (4.00-11.30)
== END 2019-02-05 11:21 | disposition home or self-care (01) ==
LOC: ATC 00:03
DX: D66 Hereditary factor VIII deficiency (principal); Z88.1 Allergy status to other antibiotic agents; Z79.899 Other long term (current) drug therapy
CPT/HCPCS: 85025; 96523

== ENCOUNTER 2019-02-09 00:02 | Day surgery (SDC) | payer OTHER ==
[2019-02-09 10:16] LABS: BASOPHILS ABSOLUTE AUTO 0.02 K/mm3 (0.00-0.23); BASOPHILS PERCENT AUTO 0 % (0-2); EOSINOPHILS ABSOLUTE AUTO 0.01 K/mm3 (0.00-0.68); EOSINOPHILS PERCENT AUTO 0 % (0-6); Hematocrit 39.6 % (37.0-53.0); Hemoglobin 13.5 g/dL (13.5-17.5); IMMATURE GRAN ABSOLUTE AUTO 0.09 K/mm3 (0.00-0.10); IMMATURE GRAN PERCENT AUTO 1 % (0-1); LYMPHOCYTES ABSOLUTE AUTO 0.95 K/mm3 (0.84-5.20); LYMPHOCYTES PERCENT AUTO 14 % (21-46); MONOCYTES ABSOLUTE AUTO 0.24 K/mm3 (0.16-1.47); MONOCYTES PERCENT AUTO 4 % (4-13); Mean Corpuscular HGB Conc 34.1 g/dL (31.5-36.5); Mean Corpuscular Volume 97 fL (80-100); Mean Platelet Volume 10.6 fL (9.1-12.4); NEUTROPHILS ABSOLUTE AUTO 5.46 K/mm3 (1.96-9.15); NEUTROPHILS PERCENT AUTO 81 % (41-73); Platelet Count 120 K/mm3 (150-400); RDW Coefficient Variation 16.3 % (11.7-14.2); RDW Standard Deviation 58.5 fL (35.1-46.3); Red Blood Cell Count 4.09 M/mm3 (4.30-5.90); White Blood Cell Count 6.77 K/mm3 (4.00-11.30)
== END 2019-02-09 10:20 | disposition home or self-care (01) ==
LOC: ATC 00:02
PROVIDERS: Internal Medicine Hematology & Oncology
DX: D68.311 Acquired hemophilia (principal); Z88.1 Allergy status to other antibiotic agents; Z79.52 Long term (current) use of systemic steroids; Z79.899 Other long term (current) drug therapy
CPT/HCPCS: 36592; 85025; 85240

== ENCOUNTER 2019-02-12 00:13 | Day surgery (SDC) | payer OTHER ==
[2019-02-12 10:49] LABS: BASOPHILS ABSOLUTE AUTO 0.03 K/mm3 (0.00-0.23); BASOPHILS PERCENT AUTO 1 % (0-2); EOSINOPHILS PERCENT AUTO 0 % (0-6); Hematocrit 37.9 % (37.0-53.0); Hemoglobin 12.9 g/dL (13.5-17.5); IMMATURE GRAN ABSOLUTE AUTO 0.08 K/mm3 (0.00-0.10); IMMATURE GRAN PERCENT AUTO 1 % (0-1); LYMPHOCYTES ABSOLUTE AUTO 0.91 K/mm3 (0.84-5.20); LYMPHOCYTES PERCENT AUTO 16 % (21-46); MONOCYTES ABSOLUTE AUTO 0.14 K/mm3 (0.16-1.47); MONOCYTES PERCENT AUTO 3 % (4-13); Mean Corpuscular HGB 32.4 pg (26.0-34.0); Mean Corpuscular Volume 95 fL (80-100); Mean Platelet Volume 10.9 fL (9.1-12.4); NEUTROPHILS ABSOLUTE AUTO 4.53 K/mm3 (1.96-9.15); NEUTROPHILS PERCENT AUTO 80 % (41-73); Platelet Count 104 K/mm3 (150-400); RDW Coefficient Variation 16.5 % (11.7-14.2); RDW Standard Deviation 57.9 fL (35.1-46.3); Red Blood Cell Count 3.98 M/mm3 (4.30-5.90); White Blood Cell Count 5.69 K/mm3 (4.00-11.30)
--- NOTE | 2019-02-12 11:54 | NUR ---
CBC RESULTS FROM TODAY FAXED TO DR. JOSE'S OFFICE. 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
== END 2019-02-12 10:35 | disposition home or self-care (01) ==
LOC: ATC 00:13
PROVIDERS: Internal Medicine Hematology & Oncology
DX: D66 Hereditary factor VIII deficiency (principal); J44.9 Chronic obstructive pulmonary disease, unspecified; F17.200 Nicotine dependence, unspecified, uncomplicated; Z79.899 Other long term (current) drug therapy; Z88.1 Allergy status to other antibiotic agents
CPT/HCPCS: 36592; 85025

== ENCOUNTER 2019-02-16 00:06 | Day surgery (SDC) | payer OTHER ==
[2019-02-16 11:04] LABS: BASOPHILS ABSOLUTE AUTO 0.02 K/mm3 (0.00-0.23); BASOPHILS PERCENT AUTO 0 % (0-2); EOSINOPHILS ABSOLUTE AUTO 0.01 K/mm3 (0.00-0.68); EOSINOPHILS PERCENT AUTO 0 % (0-6); Hematocrit 38.3 % (37.0-53.0); Hemoglobin 12.8 g/dL (13.5-17.5); IMMATURE GRAN ABSOLUTE AUTO 0.09 K/mm3 (0.00-0.10); IMMATURE GRAN PERCENT AUTO 2 % (0-1); LYMPHOCYTES ABSOLUTE AUTO 1.12 K/mm3 (0.84-5.20); LYMPHOCYTES PERCENT AUTO 22 % (21-46); MONOCYTES PERCENT AUTO 2 % (4-13); Mean Corpuscular HGB Conc 33.4 g/dL (31.5-36.5); Mean Corpuscular Volume 96 fL (80-100); Mean Platelet Volume 11.2 fL (9.1-12.4); NEUTROPHILS ABSOLUTE AUTO 3.71 K/mm3 (1.96-9.15); NEUTROPHILS PERCENT AUTO 73 % (41-73); Platelet Count 144 K/mm3 (150-400); RDW Coefficient Variation 16.3 % (11.7-14.2); RDW Standard Deviation 57.6 fL (35.1-46.3); White Blood Cell Count 5.05 K/mm3 (4.00-11.30)
== END 2019-02-16 10:18 | disposition home or self-care (01) ==
LOC: ATC 00:06
PROVIDERS: Internal Medicine Hematology & Oncology
DX: D68.311 Acquired hemophilia (principal); J90 Pleural effusion, not elsewhere classified; Z79.899 Other long term (current) drug therapy; Z88.1 Allergy status to other antibiotic agents
CPT/HCPCS: 36592; 85025

== ENCOUNTER 2019-02-19 00:22 | Day surgery (SDC) | payer OTHER ==
[2019-02-19 10:17] LABS: BASOPHILS ABSOLUTE AUTO 0.02 K/mm3 (0.00-0.23); BASOPHILS PERCENT AUTO 0 % (0-2); EOSINOPHILS ABSOLUTE AUTO 0.03 K/mm3 (0.00-0.68); EOSINOPHILS PERCENT AUTO 1 % (0-6); Hematocrit 38.4 % (37.0-53.0); Hemoglobin 13.1 g/dL (13.5-17.5); IMMATURE GRAN ABSOLUTE AUTO 0.09 K/mm3 (0.00-0.10); IMMATURE GRAN PERCENT AUTO 2 % (0-1); LYMPHOCYTES PERCENT AUTO 18 % (21-46); MONOCYTES ABSOLUTE AUTO 0.23 K/mm3 (0.16-1.47); MONOCYTES PERCENT AUTO 5 % (4-13); Mean Corpuscular HGB 32.1 pg (26.0-34.0); Mean Corpuscular HGB Conc 34.1 g/dL (31.5-36.5); Mean Corpuscular Volume 94 fL (80-100); Mean Platelet Volume 10.6 fL (9.1-12.4); NEUTROPHILS ABSOLUTE AUTO 3.31 K/mm3 (1.96-9.15); NEUTROPHILS PERCENT AUTO 74 % (41-73); Platelet Count 169 K/mm3 (150-400); RDW Coefficient Variation 16.1 % (11.7-14.2); RDW Standard Deviation 55.8 fL (35.1-46.3); Red Blood Cell Count 4.08 M/mm3 (4.30-5.90); White Blood Cell Count 4.48 K/mm3 (4.00-11.30)
== END 2019-02-19 10:03 | disposition home or self-care (01) ==
LOC: ATC 00:22
PROVIDERS: Internal Medicine Hematology & Oncology
DX: D66 Hereditary factor VIII deficiency (principal); J44.9 Chronic obstructive pulmonary disease, unspecified; Z79.899 Other long term (current) drug therapy; Z88.1 Allergy status to other antibiotic agents; Z88.8 Allergy status to other drugs, medicaments and biological substances
CPT/HCPCS: 36592; 85025

== ENCOUNTER 2019-02-23 00:21 | Day surgery (SDC) | payer OTHER ==
[2019-02-23 10:39] LABS: Hematocrit 38.8 % (37.0-53.0); Hemoglobin 13.2 g/dL (13.5-17.5); Mean Corpuscular HGB 32.8 pg (26.0-34.0); Mean Corpuscular Volume 96 fL (80-100); Mean Platelet Volume 10.6 fL (9.1-12.4); Platelet Count 160 K/mm3 (150-400); RDW Coefficient Variation 15.9 % (11.7-14.2); RDW Standard Deviation 57.1 fL (35.1-46.3); Red Blood Cell Count 4.03 M/mm3 (4.30-5.90); White Blood Cell Count 5.23 K/mm3 (4.00-11.30)
[2019-02-23] MEDS ORDERED: CYCLOPHOSPHAMID50 MG PO (11:07)
== END 2019-02-23 10:30 | disposition home or self-care (01) ==
LOC: ATC 00:21
PROVIDERS: Internal Medicine Hematology & Oncology
DX: D66 Hereditary factor VIII deficiency (principal); J44.9 Chronic obstructive pulmonary disease, unspecified; F17.200 Nicotine dependence, unspecified, uncomplicated; Z88.1 Allergy status to other antibiotic agents; Z79.899 Other long term (current) drug therapy
CPT/HCPCS: 36592; 85027

== ENCOUNTER → 2019-02-27 | Outpatient (CLI) | payer OTHER ==
[~2019-02-27] MED LIST changes: +ACET325 PO; +BARACLUDE PO; +CYCLOPHOSPHAMID50 MG PO; +Cefdinir300 MG PO; +Citalopram HBr10 MG PO; +DOXY100T53; +K-Dur20 MEQ PO; +SENN187 PO; +VALACYCLOVIR1000 MG PO
== END | disposition home or self-care (01) ==
LOC: LAB EV 15:27 → LAB SHORT 15:27
DX: L08.9 Local infection of the skin and subcutaneous tissue, unspecified (principal)
CPT/HCPCS: 87070; 87075; 87077; 87186; 87205; 87252; 87254

== ENCOUNTER 2019-03-03 00:02 | Day surgery (SDC) | payer OTHER ==
[~2019-03-03 00:02] MED LIST changes: -ACET325 PO; -BARACLUDE PO; -Cefdinir300 MG PO; -Citalopram HBr10 MG PO; -DOXY100T53; -K-Dur20 MEQ PO; -SENN187 PO; -VALACYCLOVIR1000 MG PO
[2019-03-03 14:03] LABS: BASOPHILS ABSOLUTE AUTO 0.01 K/mm3 (0.00-0.23); BASOPHILS PERCENT AUTO 0 % (0-2); EOSINOPHILS PERCENT AUTO 0 % (0-6); Hematocrit 38.7 % (37.0-53.0); Hemoglobin 13.2 g/dL (13.5-17.5); IMMATURE GRAN ABSOLUTE AUTO 0.18 K/mm3 (0.00-0.10); IMMATURE GRAN PERCENT AUTO 3 % (0-1); LYMPHOCYTES ABSOLUTE AUTO 0.77 K/mm3 (0.84-5.20); LYMPHOCYTES PERCENT AUTO 12 % (21-46); MONOCYTES ABSOLUTE AUTO 0.12 K/mm3 (0.16-1.47); MONOCYTES PERCENT AUTO 2 % (4-13); Mean Corpuscular HGB Conc 34.1 g/dL (31.5-36.5); Mean Corpuscular Volume 97 fL (80-100); Mean Platelet Volume 10.5 fL (9.1-12.4); NEUTROPHILS ABSOLUTE AUTO 5.29 K/mm3 (1.96-9.15); NEUTROPHILS PERCENT AUTO 83 % (41-73); Platelet Count 178 K/mm3 (150-400); RDW Coefficient Variation 15.5 % (11.7-14.2); RDW Standard Deviation 56.2 fL (35.1-46.3); White Blood Cell Count 6.37 K/mm3 (4.00-11.30)
[2019-03-03] MEDS ORDERED: Cefdinir300 MG PO (14:38)
[2019-03-03] MEDS ORDERED: DOXY100T53 (14:38)
== END 2019-03-03 14:00 | disposition home or self-care (01) ==
LOC: ATC 00:02
PROVIDERS: Internal Medicine Hematology & Oncology
DX: D66 Hereditary factor VIII deficiency (principal); Z79.899 Other long term (current) drug therapy; Z88.1 Allergy status to other antibiotic agents
CPT/HCPCS: 36592; 85025

== ENCOUNTER 2019-03-05 15:18 | Day surgery (SDC) | payer OTHER ==
[~2019-03-05 15:18] MED LIST changes: +Cefdinir300 MG PO; +DOXY100T53
[2019-03-05 16:46] LABS: BASOPHILS ABSOLUTE AUTO 0.01 K/mm3 (0.00-0.23); BASOPHILS PERCENT AUTO 0 % (0-2); EOSINOPHILS PERCENT AUTO 0 % (0-6); Hematocrit 38.5 % (37.0-53.0); Hemoglobin 13.1 g/dL (13.5-17.5); IMMATURE GRAN ABSOLUTE AUTO 0.24 K/mm3 (0.00-0.10); IMMATURE GRAN PERCENT AUTO 4 % (0-1); LYMPHOCYTES ABSOLUTE AUTO 0.61 K/mm3 (0.84-5.20); LYMPHOCYTES PERCENT AUTO 11 % (21-46); MONOCYTES ABSOLUTE AUTO 0.12 K/mm3 (0.16-1.47); MONOCYTES PERCENT AUTO 2 % (4-13); Mean Corpuscular HGB 32.3 pg (26.0-34.0); Mean Corpuscular Volume 95 fL (80-100); Mean Platelet Volume 10.6 fL (9.1-12.4); NEUTROPHILS ABSOLUTE AUTO 4.66 K/mm3 (1.96-9.15); NEUTROPHILS PERCENT AUTO 83 % (41-73); Platelet Count 192 K/mm3 (150-400); RDW Coefficient Variation 15.5 % (11.7-14.2); RDW Standard Deviation 54.5 fL (35.1-46.3); Red Blood Cell Count 4.06 M/mm3 (4.30-5.90); White Blood Cell Count 5.64 K/mm3 (4.00-11.30)
== END 2019-03-05 16:35 | disposition home or self-care (01) ==
LOC: ATC 15:18
DX: D66 Hereditary factor VIII deficiency (principal); Z88.1 Allergy status to other antibiotic agents; Z79.899 Other long term (current) drug therapy
CPT/HCPCS: 36592; 85025

== ENCOUNTER 2019-03-10 00:19 | Day surgery (SDC) | payer OTHER ==
[2019-03-10 10:35] LABS: BASOPHILS ABSOLUTE AUTO 0.02 K/mm3 (0.00-0.23); BASOPHILS PERCENT AUTO 0 % (0-2); EOSINOPHILS ABSOLUTE AUTO 0.05 K/mm3 (0.00-0.68); EOSINOPHILS PERCENT AUTO 1 % (0-6); Hematocrit 35.1 % (37.0-53.0); Hemoglobin 11.9 g/dL (13.5-17.5); IMMATURE GRAN ABSOLUTE AUTO 0.28 K/mm3 (0.00-0.10); IMMATURE GRAN PERCENT AUTO 3 % (0-1); LYMPHOCYTES ABSOLUTE AUTO 0.48 K/mm3 (0.84-5.20); LYMPHOCYTES PERCENT AUTO 5 % (21-46); MONOCYTES ABSOLUTE AUTO 0.42 K/mm3 (0.16-1.47); MONOCYTES PERCENT AUTO 5 % (4-13); Mean Corpuscular HGB 32.7 pg (26.0-34.0); Mean Corpuscular HGB Conc 33.9 g/dL (31.5-36.5); Mean Corpuscular Volume 96 fL (80-100); Mean Platelet Volume 10.8 fL (9.1-12.4); NEUTROPHILS ABSOLUTE AUTO 7.75 K/mm3 (1.96-9.15); NEUTROPHILS PERCENT AUTO 86 % (41-73); Platelet Count 171 K/mm3 (150-400); RDW Coefficient Variation 15.1 % (11.7-14.2); RDW Standard Deviation 53.7 fL (35.1-46.3); Red Blood Cell Count 3.64 M/mm3 (4.30-5.90)
== END 2019-03-10 10:12 | disposition home or self-care (01) ==
LOC: ATC 00:19
PROVIDERS: Internal Medicine Hematology & Oncology
DX: D66 Hereditary factor VIII deficiency (principal); Z88.1 Allergy status to other antibiotic agents; Z88.8 Allergy status to other drugs, medicaments and biological substances
CPT/HCPCS: 36592; 85025

== ENCOUNTER 2019-03-19 00:54 | Day surgery (SDC) | payer OTHER ==
[2019-03-19 14:09] LABS: Hemoglobin 9.4 g/dL (13.5-17.5); Mean Corpuscular HGB Conc 33.6 g/dL (31.5-36.5); Mean Corpuscular Volume 98 fL (80-100); Mean Platelet Volume 10.3 fL (9.1-12.4); Platelet Count 176 K/mm3 (150-400); RDW Coefficient Variation 15.9 % (11.7-14.2); RDW Standard Deviation 55.9 fL (35.1-46.3); Red Blood Cell Count 2.85 M/mm3 (4.30-5.90); White Blood Cell Count 5.57 K/mm3 (4.00-11.30)
[2019-03-19 14:36] LABS: BAND PERCENT MAN 4 % (0-8); BASOPHILS ABSOLUTE MAN 0.05 K/mm3 (0.00-0.23); BASOPHILS PERCENT MAN 1 % (0-2); EOSINOPHILS ABSOLUTE MAN 0.05 K/mm3 (0.00-0.68); EOSINOPHILS PERCENT MAN 1 % (0-6); LYMPHOCYTES ABSOLUTE MAN 0.33 K/mm3 (0.84-5.20); LYMPHOCYTES PERCENT MAN 6 % (21-46); METAMYELOCYTE ABSOLUTE MAN 0.05 K/mm3 (0.00-0.00); METAMYELOCYTE PERCENT MAN 1 % (0-0); MONOCYTES ABSOLUTE MAN 0.22 K/mm3 (0.16-1.47); MONOCYTES PERCENT MAN 4 % (4-13); MYELOCYTE ABSOLUTE MAN 0.05 K/mm3 (0.00-0.00); MYELOCYTE PERCENT MAN 1 % (0-0); NEUTROPHILS ABSOLUTE MAN 4.79 K/mm3 (1.96-9.15); SEG NEUTROPHILS PERCENT MAN 82 % (41-73); TOTAL CELLS COUNTED 100
== END 2019-03-19 13:51 | disposition home or self-care (01) ==
LOC: ATC 00:54
PROVIDERS: Internal Medicine Hematology & Oncology
DX: D66 Hereditary factor VIII deficiency (principal); Z79.899 Other long term (current) drug therapy; Z88.1 Allergy status to other antibiotic agents
CPT/HCPCS: 36592; 85025

== ENCOUNTER 2019-03-23 00:07 | Day surgery (SDC) | payer OTHER ==
[2019-03-23 11:50] LABS: BASOPHILS ABSOLUTE AUTO 0.04 K/mm3 (0.00-0.23); BASOPHILS PERCENT AUTO 1 % (0-2); EOSINOPHILS ABSOLUTE AUTO 0.07 K/mm3 (0.00-0.68); EOSINOPHILS PERCENT AUTO 2 % (0-6); Hematocrit 28.8 % (37.0-53.0); Hemoglobin 9.8 g/dL (13.5-17.5); IMMATURE GRAN ABSOLUTE AUTO 0.37 K/mm3 (0.00-0.10); IMMATURE GRAN PERCENT AUTO 8 % (0-1); LYMPHOCYTES ABSOLUTE AUTO 0.63 K/mm3 (0.84-5.20); LYMPHOCYTES PERCENT AUTO 13 % (21-46); MONOCYTES ABSOLUTE AUTO 0.44 K/mm3 (0.16-1.47); MONOCYTES PERCENT AUTO 9 % (4-13); Mean Corpuscular HGB 33.9 pg (26.0-34.0); Mean Corpuscular Volume 100 fL (80-100); Mean Platelet Volume 9.8 fL (9.1-12.4); NEUTROPHILS PERCENT AUTO 67 % (41-73); Platelet Count 227 K/mm3 (150-400); RDW Coefficient Variation 15.9 % (11.7-14.2); RDW Standard Deviation 58.4 fL (35.1-46.3); Red Blood Cell Count 2.89 M/mm3 (4.30-5.90); White Blood Cell Count 4.75 K/mm3 (4.00-11.30)
[2019-03-23 12:11] LABS: BAND PERCENT MAN 4 % (0-8); BASOPHILS PERCENT MAN 0 % (0-2); EOSINOPHILS ABSOLUTE MAN 0.04 K/mm3 (0.00-0.68); EOSINOPHILS PERCENT MAN 1 % (0-6); LYMPHOCYTES ABSOLUTE MAN 0.71 K/mm3 (0.84-5.20); LYMPHOCYTES PERCENT MAN 15 % (21-46); MONOCYTES ABSOLUTE MAN 0.04 K/mm3 (0.16-1.47); MONOCYTES PERCENT MAN 1 % (4-13); MYELOCYTE ABSOLUTE MAN 0.09 K/mm3 (0.00-0.00); MYELOCYTE PERCENT MAN 2 % (0-0); NEUTROPHILS ABSOLUTE MAN 3.84 K/mm3 (1.96-9.15); SEG NEUTROPHILS PERCENT MAN 77 % (41-73); TOTAL CELLS COUNTED 100
--- NOTE | 2019-03-23 12:27 | NUR ---
LAB RESULTS FROM LAB FAXED TO DR. JOSE'S OFFICE.
== END 2019-03-23 11:28 | disposition home or self-care (01) ==
LOC: ATC 00:07
PROVIDERS: Internal Medicine Hematology & Oncology
DX: D66 Hereditary factor VIII deficiency (principal)
CPT/HCPCS: 36592; 85025

== ENCOUNTER 2019-03-26 00:27 | Day surgery (SDC) | payer OTHER ==
[2019-03-26 11:58] LABS: Hematocrit 28.6 % (37.0-53.0); Hemoglobin 9.8 g/dL (13.5-17.5); Mean Corpuscular HGB 34.3 pg (26.0-34.0); Mean Corpuscular HGB Conc 34.3 g/dL (31.5-36.5); Mean Corpuscular Volume 100 fL (80-100); Mean Platelet Volume 10.3 fL (9.1-12.4); Platelet Count 250 K/mm3 (150-400); RDW Coefficient Variation 15.9 % (11.7-14.2); RDW Standard Deviation 58.4 fL (35.1-46.3); Red Blood Cell Count 2.86 M/mm3 (4.30-5.90)
[2019-03-26 12:35] LABS: BAND PERCENT MAN 8 % (0-8); BASOPHILS ABSOLUTE MAN 0.09 K/mm3 (0.00-0.23); BASOPHILS PERCENT MAN 2 % (0-2); EOSINOPHILS ABSOLUTE MAN 0.04 K/mm3 (0.00-0.68); EOSINOPHILS PERCENT MAN 1 % (0-6); LYMPHOCYTES ABSOLUTE MAN 0.32 K/mm3 (0.84-5.20); LYMPHOCYTES PERCENT MAN 7 % (21-46); MONOCYTES ABSOLUTE MAN 0.23 K/mm3 (0.16-1.47); MONOCYTES PERCENT MAN 5 % (4-13); MYELOCYTE ABSOLUTE MAN 0.09 K/mm3 (0.00-0.00); MYELOCYTE PERCENT MAN 2 % (0-0); SEG NEUTROPHILS PERCENT MAN 75 % (41-73); TOTAL CELLS COUNTED 100
[2019-03-26] MEDS ORDERED: K-Dur20 MEQ PO (19:48)
--- NOTE | 2019-03-27 18:23 | NUR ---
LATE ENTRY: VITAL SIGNS WERE TAKEN AND LAB WAS DONE, ENCOURAGED PT TO GO TO ER SINCE PT HAS FLUID BUILD UP IN BOTH ARMS. PTS SAID SHE WOULD CALL
== END 2019-03-26 11:20 | disposition home or self-care (01) ==
LOC: ATC 00:27
PROVIDERS: Internal Medicine Hematology & Oncology
DX: D66 Hereditary factor VIII deficiency (principal); Z79.899 Other long term (current) drug therapy; Z88.1 Allergy status to other antibiotic agents; Z88.8 Allergy status to other drugs, medicaments and biological substances
CPT/HCPCS: 36592; 85025

== ENCOUNTER 2019-03-26 17:33 | Emergency (ER) | payer OTHER ==
[~2019-03-26] VITALS: Ht 170.2 cm; Wt 63.5 kg
[2019-03-26 18:47] LABS: Hematocrit 27.6 % (37.0-53.0); Hemoglobin 9.5 g/dL (13.5-17.5); Mean Corpuscular HGB 34.3 pg (26.0-34.0); Mean Corpuscular HGB Conc 34.4 g/dL (31.5-36.5); Mean Corpuscular Volume 100 fL (80-100); Mean Platelet Volume 9.8 fL (9.1-12.4); Platelet Count 201 K/mm3 (150-400); RDW Coefficient Variation 15.9 % (11.7-14.2); RDW Standard Deviation 57.8 fL (35.1-46.3); Red Blood Cell Count 2.77 M/mm3 (4.30-5.90); White Blood Cell Count 3.86 K/mm3 (4.00-11.30)
[2019-03-26 19:05] LABS: International Normalized Ratio 1.06; Prothrombin Time Results 11.2 Sec (9.7-11.5)
[2019-03-26 19:07] LABS: Alanine Aminotransfer (ALT/SGP 12 U/L (12-78); Albumin, Blood 2.1 g/dL (3.4-5.0); Albumin/Globulin Ratio 0.9 (0.8-1.8); Alk Phos 87 U/L (50-136); Anion Gap 1 mmol/L (6-16); Aspartate Aminotrans (AST/SGOT 23 U/L (12-37); Bilirubin, Total 1.2 mg/dL (0.1-1.0); Blood Urea Nitrogen 22 mg/dL (8-24); Bun/Creatinine Ratio 21.2 (12.0-20.0); CO2, Blood 32 mmol/L (21-32); Calcium, Blood 9.1 mg/dL (8.5-10.1); Chloride, Blood 104 mmol/L (98-108); Creatinine, Blood 1.04 mg/dL (0.60-1.20); Globulin, Blood 2.3 g/dL (2.2-4.0); Glomerular Filtration Rate >60 (60-); Glucose, Blood 126 mg/dL (70-99); Potassium, Blood 2.6 mmol/L (3.5-5.5); Sodium, Blood 137 mmol/L (136-145); Total Protein, Blood 4.4 g/dL (6.4-8.2)
[2019-03-26 19:09] LABS: BAND PERCENT MAN 9 % (0-8); BASOPHILS ABSOLUTE MAN 0.03 K/mm3 (0.00-0.23); BASOPHILS PERCENT MAN 1 % (0-2); EOSINOPHILS ABSOLUTE MAN 0.03 K/mm3 (0.00-0.68); EOSINOPHILS PERCENT MAN 1 % (0-6); LYMPHOCYTES ABSOLUTE MAN 0.54 K/mm3 (0.84-5.20); LYMPHOCYTES PERCENT MAN 14 % (21-46); METAMYELOCYTE ABSOLUTE MAN 0.03 K/mm3 (0.00-0.00); METAMYELOCYTE PERCENT MAN 1 % (0-0); MONOCYTES ABSOLUTE MAN 0.03 K/mm3 (0.16-1.47); MONOCYTES PERCENT MAN 1 % (4-13); MYELOCYTE ABSOLUTE MAN 0.03 K/mm3 (0.00-0.00); MYELOCYTE PERCENT MAN 1 % (0-0); NEUTROPHILS ABSOLUTE MAN 3.12 K/mm3 (1.96-9.15); SEG NEUTROPHILS PERCENT MAN 72 % (41-73); TOTAL CELLS COUNTED 100
[2019-03-26] MEDS ORDERED: K-Dur20 MEQ PO (19:48)
== END 2019-03-26 20:19 | disposition home or self-care (01) ==
LOC: ER 17:33
PROVIDERS: Emergency Medicine
DX: E88.09 Other disorders of plasma-protein metabolism, not elsewhere classified (principal); M79.89 Other specified soft tissue disorders; E87.6 Hypokalemia; J43.9 Emphysema, unspecified; Z85.46 Personal history of malignant neoplasm of prostate; Z85.51 Personal history of malignant neoplasm of bladder; Z88.8 Allergy status to other drugs, medicaments and biological substances; Z88.2 Allergy status to sulfonamides; Z88.5 Allergy status to narcotic agent; Z88.1 Allergy status to other antibiotic agents; Z79.899 Other long term (current) drug therapy; Z79.52 Long term (current) use of systemic steroids
CPT/HCPCS: 80053; 85025; 85610; 93970; 99284-25

== ENCOUNTER 2019-03-30 00:13 | Day surgery (SDC) | payer OTHER ==
[~2019-03-30 00:13] MED LIST changes: +K-Dur20 MEQ PO
[2019-03-30 12:12] LABS: Hematocrit 30.5 % (37.0-53.0); Hemoglobin 10.5 g/dL (13.5-17.5); Mean Corpuscular HGB 34.5 pg (26.0-34.0); Mean Corpuscular HGB Conc 34.4 g/dL (31.5-36.5); Mean Corpuscular Volume 100 fL (80-100); Mean Platelet Volume 10.5 fL (9.1-12.4); Platelet Count 268 K/mm3 (150-400); RDW Coefficient Variation 15.9 % (11.7-14.2); RDW Standard Deviation 58.5 fL (35.1-46.3); Red Blood Cell Count 3.04 M/mm3 (4.30-5.90); White Blood Cell Count 4.82 K/mm3 (4.00-11.30)
--- NOTE | 2019-03-30 12:26 | NUR ---
CALL TO [facility] DR PETER JOSE RE PTS LOW BP. SPOKE WITH IMELDA KOHLI AND GAVE ORDER FOR PT TO BE SEEN BY PCP, CALL TO PCP SPOKE WITH Dulce Maria CARDOSO NP RE LOW BP. SHE GAVE ORDERS TO GO TO ER. PT DISCHARGED TO ER WITH . CALL TO NIRMALA KOHLI IN ER WITH REPORT.
--- NOTE | 2019-03-30 12:32 | NUR ---
DISCHARGED WITH TO ER.
--- NOTE | 2019-03-30 12:34 | NUR ---
PT WITH FLUID IN BOTH ARMS. PICC SITE WITH A SMALL SKIN TEAR NEXT TO STAT LOC. BRUISING NOTED ON UPPER L ARM.
[2019-03-30 12:38] LABS: BAND PERCENT MAN 5 % (0-8); BASOPHILS ABSOLUTE MAN 0.04 K/mm3 (0.00-0.23); BASOPHILS PERCENT MAN 1 % (0-2); EOSINOPHILS ABSOLUTE MAN 0.09 K/mm3 (0.00-0.68); EOSINOPHILS PERCENT MAN 2 % (0-6); LYMPHOCYTES ABSOLUTE MAN 0.67 K/mm3 (0.84-5.20); LYMPHOCYTES PERCENT MAN 14 % (21-46); MONOCYTES ABSOLUTE MAN 0.53 K/mm3 (0.16-1.47); MONOCYTES PERCENT MAN 11 % (4-13); NEUTROPHILS ABSOLUTE MAN 3.47 K/mm3 (1.96-9.15); SEG NEUTROPHILS PERCENT MAN 67 % (41-73); TOTAL CELLS COUNTED 100
[2019-03-30] MEDS ORDERED: K-Dur20 MEQ PO (15:57)
== END 2019-03-30 12:08 | disposition home or self-care (01) ==
LOC: ATC 00:13
PROVIDERS: Internal Medicine Hematology & Oncology
DX: D66 Hereditary factor VIII deficiency (principal); Z88.1 Allergy status to other antibiotic agents; Z79.899 Other long term (current) drug therapy
CPT/HCPCS: 36592; 85025

== ENCOUNTER 2019-03-30 12:19 | Emergency (ER) | payer OTHER ==
[~2019-03-30] VITALS: Ht 170.2 cm; Wt 65.3 kg
[2019-03-30 14:14] LABS: Hemoglobin 10.3 g/dL (13.5-17.5); Mean Corpuscular HGB 34.2 pg (26.0-34.0); Mean Corpuscular HGB Conc 34.3 g/dL (31.5-36.5); Mean Corpuscular Volume 100 fL (80-100); Mean Platelet Volume 10.3 fL (9.1-12.4); Platelet Count 251 K/mm3 (150-400); RDW Coefficient Variation 15.7 % (11.7-14.2); RDW Standard Deviation 57.8 fL (35.1-46.3); Red Blood Cell Count 3.01 M/mm3 (4.30-5.90); White Blood Cell Count 4.37 K/mm3 (4.00-11.30)
[2019-03-30 14:33] LABS: BAND PERCENT MAN 10 % (0-8); BASOPHILS ABSOLUTE MAN 0.04 K/mm3 (0.00-0.23); BASOPHILS PERCENT MAN 1 % (0-2); EOSINOPHILS PERCENT MAN 0 % (0-6); LYMPHOCYTES ABSOLUTE MAN 0.96 K/mm3 (0.84-5.20); LYMPHOCYTES PERCENT MAN 22 % (21-46); METAMYELOCYTE ABSOLUTE MAN 0.04 K/mm3 (0.00-0.00); METAMYELOCYTE PERCENT MAN 1 % (0-0); MONOCYTES ABSOLUTE MAN 0.13 K/mm3 (0.16-1.47); MONOCYTES PERCENT MAN 3 % (4-13); NEUTROPHILS ABSOLUTE MAN 3.19 K/mm3 (1.96-9.15); SEG NEUTROPHILS PERCENT MAN 63 % (41-73); TOTAL CELLS COUNTED 100
[2019-03-30 14:38] LABS: Alanine Aminotransfer (ALT/SGP 15 U/L (12-78); Albumin, Blood 2.2 g/dL (3.4-5.0); Albumin/Globulin Ratio 0.8 (0.8-1.8); Alk Phos 103 U/L (50-136); Anion Gap 6 mmol/L (6-16); Aspartate Aminotrans (AST/SGOT 31 U/L (12-37); Bilirubin, Total 1.1 mg/dL (0.1-1.0); Blood Urea Nitrogen 29 mg/dL (8-24); Bun/Creatinine Ratio 25.2 (12.0-20.0); CO2, Blood 34 mmol/L (21-32); Chloride, Blood 102 mmol/L (98-108); Creatinine, Blood 1.15 mg/dL (0.60-1.20); Globulin, Blood 2.6 g/dL (2.2-4.0); Glomerular Filtration Rate >60 (60-); Glucose, Blood 138 mg/dL (70-99); Potassium, Blood 2.5 mmol/L (3.5-5.5); Sodium, Blood 142 mmol/L (136-145); Total Protein, Blood 4.8 g/dL (6.4-8.2)
[2019-03-30] MEDS ORDERED: K-Dur20 MEQ PO (15:57)
== END 2019-03-30 16:03 | disposition home or self-care (01) ==
LOC: ER 12:19
PROVIDERS: Physician Assistant
DX: I95.9 Hypotension, unspecified (principal); E87.6 Hypokalemia; E88.09 Other disorders of plasma-protein metabolism, not elsewhere classified; D64.9 Anemia, unspecified; J44.9 Chronic obstructive pulmonary disease, unspecified; Z85.46 Personal history of malignant neoplasm of prostate; Z85.51 Personal history of malignant neoplasm of bladder; Z87.891 Personal history of nicotine dependence; Z88.8 Allergy status to other drugs, medicaments and biological substances; Z88.1 Allergy status to other antibiotic agents; Z88.2 Allergy status to sulfonamides; Z88.5 Allergy status to narcotic agent; Z79.899 Other long term (current) drug therapy; Z79.52 Long term (current) use of systemic steroids
CPT/HCPCS: 80053; 85025; 96360; 96361; 99284-25; J7120

== ENCOUNTER 2019-04-02 10:34 | Day surgery (SDC) | payer OTHER ==
[2019-04-02 11:32] LABS: Hematocrit 30.8 % (37.0-53.0); Hemoglobin 10.3 g/dL (13.5-17.5); Mean Corpuscular HGB 33.2 pg (26.0-34.0); Mean Corpuscular HGB Conc 33.4 g/dL (31.5-36.5); Mean Corpuscular Volume 99 fL (80-100); Mean Platelet Volume 10.5 fL (9.1-12.4); Platelet Count 289 K/mm3 (150-400); RDW Coefficient Variation 15.5 % (11.7-14.2); RDW Standard Deviation 55.9 fL (35.1-46.3); White Blood Cell Count 4.54 K/mm3 (4.00-11.30)
[2019-04-02 12:05] LABS: BAND PERCENT MAN 8 % (0-8); BASOPHILS PERCENT MAN 0 % (0-2); EOSINOPHILS PERCENT MAN 0 % (0-6); LYMPHOCYTES ABSOLUTE MAN 0.49 K/mm3 (0.84-5.20); LYMPHOCYTES PERCENT MAN 11 % (21-46); MONOCYTES ABSOLUTE MAN 0.22 K/mm3 (0.16-1.47); MONOCYTES PERCENT MAN 5 % (4-13); NEUTROPHILS ABSOLUTE MAN 3.81 K/mm3 (1.96-9.15); SEG NEUTROPHILS PERCENT MAN 76 % (41-73); TOTAL CELLS COUNTED 100
[2019-04-03] MEDS ORDERED: ACET325 PO (10:39)
[2019-04-03] MEDS ORDERED: Citalopram HBr10 MG PO (10:40)
[2019-04-03] MEDS ORDERED: BARACLUDE PO (10:40)
[2019-04-03] MEDS ORDERED: VALACYCLOVIR1000 MG PO (10:41)
== END 2019-04-02 11:15 | disposition home or self-care (01) ==
LOC: ATC 10:34
PROVIDERS: Internal Medicine Hematology & Oncology
DX: D66 Hereditary factor VIII deficiency (principal); Z88.1 Allergy status to other antibiotic agents; Z88.8 Allergy status to other drugs, medicaments and biological substances; Z79.899 Other long term (current) drug therapy
CPT/HCPCS: 36592; 85025

== ENCOUNTER 2019-04-03 01:03 | Day surgery (SDC) | payer OTHER ==
[2019-04-03] MEDS ORDERED: ACET325 PO (10:39)
[2019-04-03] MEDS ORDERED: Citalopram HBr10 MG PO (10:40)
[2019-04-03] MEDS ORDERED: BARACLUDE PO (10:40)
[2019-04-03] MEDS ORDERED: VALACYCLOVIR1000 MG PO (10:41)
== END 2019-04-03 10:30 | disposition home or self-care (01) ==
LOC: ATC 01:03
DX: D66 Hereditary factor VIII deficiency (principal); Z88.1 Allergy status to other antibiotic agents; Z88.8 Allergy status to other drugs, medicaments and biological substances; Z79.899 Other long term (current) drug therapy; Z79.51 Long term (current) use of inhaled steroids
CPT/HCPCS: 99211

== ENCOUNTER 2019-04-08 18:14 | Inpatient (IN) | payer OTHER ==
[~2019-04-08] VITALS: Ht 170.2 cm; Wt 58.4 kg
[~2019-04-08 18:14] MED LIST changes: -SENN187 PO
[2019-04-08 20:54] LABS: BASOPHILS ABSOLUTE AUTO 0.03 K/mm3 (0.00-0.23); BASOPHILS PERCENT AUTO 1 % (0-2); EOSINOPHILS ABSOLUTE AUTO 0.02 K/mm3 (0.00-0.68); EOSINOPHILS PERCENT AUTO 1 % (0-6); Hematocrit 29.9 % (37.0-53.0); Hemoglobin 10.2 g/dL (13.5-17.5); IMMATURE GRAN ABSOLUTE AUTO 0.14 K/mm3 (0.00-0.10); IMMATURE GRAN PERCENT AUTO 5 % (0-1); LYMPHOCYTES ABSOLUTE AUTO 0.62 K/mm3 (0.84-5.20); LYMPHOCYTES PERCENT AUTO 24 % (21-46); MONOCYTES ABSOLUTE AUTO 0.41 K/mm3 (0.16-1.47); MONOCYTES PERCENT AUTO 16 % (4-13); Mean Corpuscular HGB 33.9 pg (26.0-34.0); Mean Corpuscular HGB Conc 34.1 g/dL (31.5-36.5); Mean Corpuscular Volume 99 fL (80-100); Mean Platelet Volume 10.7 fL (9.1-12.4); NEUTROPHILS PERCENT AUTO 54 % (41-73); Platelet Count 252 K/mm3 (150-400); RDW Standard Deviation 54.2 fL (35.1-46.3); Red Blood Cell Count 3.01 M/mm3 (4.30-5.90); White Blood Cell Count 2.62 K/mm3 (4.00-11.30)
[2019-04-08 21:17] LABS: Albumin, Blood 2.2 g/dL (3.4-5.0); Bilirubin, Total 1.1 mg/dL (0.1-1.0); Bun/Creatinine Ratio 23.8 (12.0-20.0); Calcium, Blood 11.2 mg/dL (8.5-10.1); Creatinine, Blood 1.51 mg/dL (0.60-1.20); Globulin, Blood 2.3 g/dL (2.2-4.0); Magnesium, Blood 2.2 mg/dL (1.6-2.4); Potassium, Blood 2.5 mmol/L (3.5-5.5); Total Protein, Blood 4.5 g/dL (6.4-8.2)
[2019-04-09 05:33] LABS: Source, Urine Clean Catch
[2019-04-09 05:38] LABS: Bilirubin, Urine Neg (Neg); Blood, Urine 4+ (Neg); Glucose Qualitative, Urine Neg (Neg); Ketones, Urine Neg (Neg); Leukocyte Esterase, Urine Neg (Neg); Nitrite, Urine Neg (Neg); Protein, Urine Neg (Neg); Specific Gravity, Urine 1.015 (1.003-1.022); Urobilinogen, Urine NORM (Normal)
[2019-04-09 05:44] LABS: BASOPHILS ABSOLUTE AUTO 0.04 K/mm3 (0.00-0.23); BASOPHILS PERCENT AUTO 1 % (0-2); EOSINOPHILS ABSOLUTE AUTO 0.09 K/mm3 (0.00-0.68); EOSINOPHILS PERCENT AUTO 2 % (0-6); Hematocrit 33.4 % (37.0-53.0); Hemoglobin 11.3 g/dL (13.5-17.5); IMMATURE GRAN ABSOLUTE AUTO 0.14 K/mm3 (0.00-0.10); IMMATURE GRAN PERCENT AUTO 3 % (0-1); LYMPHOCYTES ABSOLUTE AUTO 1.49 K/mm3 (0.84-5.20); LYMPHOCYTES PERCENT AUTO 36 % (21-46); MONOCYTES ABSOLUTE AUTO 0.65 K/mm3 (0.16-1.47); MONOCYTES PERCENT AUTO 16 % (4-13); Mean Corpuscular HGB 33.5 pg (26.0-34.0); Mean Corpuscular HGB Conc 33.8 g/dL (31.5-36.5); Mean Corpuscular Volume 99 fL (80-100); Mean Platelet Volume 10.6 fL (9.1-12.4); NEUTROPHILS ABSOLUTE AUTO 1.76 K/mm3 (1.96-9.15); NEUTROPHILS PERCENT AUTO 42 % (41-73); Platelet Count 284 K/mm3 (150-400); RDW Coefficient Variation 15.2 % (11.7-14.2); RDW Standard Deviation 54.9 fL (35.1-46.3); Red Blood Cell Count 3.37 M/mm3 (4.30-5.90); White Blood Cell Count 4.17 K/mm3 (4.00-11.30)
[2019-04-09 06:01] LABS: Appearance, Urine Clear (Clear); Color, Urine Yellow (P-Yellow)
[2019-04-09 06:06] LABS: Bacteria Not Seen /hpf; Squamous Epithelial Cells Not Seen /hpf (Few); Transitional Epithelial Cells Few /hpf (0-Rare); White Blood Cells, Urine Rare /hpf (0-5)
[2019-04-09 06:09] LABS: Albumin, Blood 2.3 g/dL (3.4-5.0); Bilirubin, Total 1.2 mg/dL (0.1-1.0); Bun/Creatinine Ratio 23.4 (12.0-20.0); Calcium, Blood 11.3 mg/dL (8.5-10.1); Creatinine, Blood 1.41 mg/dL (0.60-1.20); Globulin, Blood 2.4 g/dL (2.2-4.0); Magnesium, Blood 2.4 mg/dL (1.6-2.4); Total Protein, Blood 4.7 g/dL (6.4-8.2)
--- NOTE | 2019-04-09 06:43 | NUR ---
SHIFT SUMMARY PATIENT RECEIVED FROM ER AND ADMISSION COMPLETE. PATIENT ORIENTED TO SELF AND PLACE BUT VERY FORGETFUL AND HAS A HARD TIME FOLLOWING MORE THAN ONE STEP INSTRUCTIONS. PATIENT VERY DROWSY. UO SBA TO BATHROOM. IV POTASSIUM RUNNING IN R UPPER ARM IV WITH NO COMPLAINTS OR ISSUES. TELEMTRY IN PLACE. WILL CONTINUE TO MONITOR AND REPORT TO ONCOMING SHIFT.
--- NOTE | 2019-04-09 06:45 | NUR ---
SHIFT SUMMARY PATIENT HAD MULTIPLE LOOSE STOOLS THROUGHOUT THE NOC SHIFT. INCONTINENT/CONTINENT. IV LEAKING IN LEFT AC AND SWITCHED TO RIGHT WRIST. PATIENT USED BEDPAN AT TIMES. Q2H TURN. WILL CONTINUE TO MONITOR AND REPORT TO ONCOMING RN
--- NOTE | 2019-04-09 13:05 | NUR ---
UPDATE [facility] NURSE, BLANE WAS UPDATED ON PT CONDITION. BLANE REQUESTED THAT FACTOR 8 ACTIVITY & CBC CONTINUED TO BE DRAWN ON MONDAYS & THURSDAYS LONG PT IS STILL IN HOSPITAL & BE SENT TO [facility]. [facility] NOTIFIED OF REQUEST.
--- NOTE | 2019-04-09 17:06 | NUR ---
Spiritual Care inital note: Pt was sleeping soundly and family asked not to disturb. Per admit trigger, I was tasked to provide information on ACP. Family took information, but declined conversation. [employer] franci remain available.
--- NOTE | 2019-04-09 17:25 | NUR ---
SHIFT SUMMARY PT WORKED WITH THERAPY THIS SHIFT. PT GOT UP INTO CHAIR & TOLERATED FOR ABOUT 3 HOURS. PT AMBULATING TO BATHROOM NEEDED. O2 AT BEDSIDE IN CASE OF DESAT. PHYSICAL THERAPY REPORTED SATS IN THE 80S WHEN AMBULATING TO BATHROOM. DR. COSME AWARE. CONT PULSE OX IN PLACE. PT RECIEVEING D5W1/2NS KCL 20 MEQ 100HR X2 BAGS. TOLERATING WELL. PT FAMILY STATES HE IS EATING BETTER THAN HE HAD AT HOME. DIETITIAN ON BOARD. NO OTHER CHANGES IN ASSESSMENT AT THIS TIME. VSS. WILL CONTINUE TO MONITOR UNTIL TURNOVER IS COMPLETE.
[2019-04-10 05:05] LABS: BASOPHILS ABSOLUTE AUTO 0.03 K/mm3 (0.00-0.23); BASOPHILS PERCENT AUTO 1 % (0-2); EOSINOPHILS ABSOLUTE AUTO 0.09 K/mm3 (0.00-0.68); EOSINOPHILS PERCENT AUTO 3 % (0-6); Hematocrit 30.2 % (37.0-53.0); Hemoglobin 10.2 g/dL (13.5-17.5); IMMATURE GRAN ABSOLUTE AUTO 0.15 K/mm3 (0.00-0.10); IMMATURE GRAN PERCENT AUTO 6 % (0-1); LYMPHOCYTES ABSOLUTE AUTO 0.54 K/mm3 (0.84-5.20); LYMPHOCYTES PERCENT AUTO 20 % (21-46); MONOCYTES ABSOLUTE AUTO 0.55 K/mm3 (0.16-1.47); MONOCYTES PERCENT AUTO 20 % (4-13); Mean Corpuscular HGB 33.7 pg (26.0-34.0); Mean Corpuscular HGB Conc 33.8 g/dL (31.5-36.5); Mean Corpuscular Volume 100 fL (80-100); Mean Platelet Volume 10.8 fL (9.1-12.4); NEUTROPHILS ABSOLUTE AUTO 1.33 K/mm3 (1.96-9.15); NEUTROPHILS PERCENT AUTO 50 % (41-73); NRBC ABSOLUTE 0.02 K/mm3 (0.00-0.02); NRBC Auto 0.7 /100 WBC (0.0-0.2); Platelet Count 265 K/mm3 (150-400); RDW Coefficient Variation 15.1 % (11.7-14.2); RDW Standard Deviation 54.5 fL (35.1-46.3); Red Blood Cell Count 3.03 M/mm3 (4.30-5.90); White Blood Cell Count 2.69 K/mm3 (4.00-11.30)
--- NOTE | 2019-04-10 05:29 | NUR ---
SHIFT SUMMARY: 83 Y/O MALE RESTED COMFORTABLY ALL SHIFT, UP TO VOID NUMEROUS TIMES VIA URINAL AND BATHROOM, GAIT SLOW AND UNSTEADY X 1 STANDBY ASSIST VIA WALKER, ALERT AND ORIENTED X 4, HAPPY AND COOPERATIVE, BED ALARM APPLIED, BED LOW POSITION WITH CALL LIGHT AT SIDE, O2 SAT AVERAGED 90% ON ROOM AIR.
[2019-04-10 05:42] LABS: Albumin, Blood 2.2 g/dL (3.4-5.0); Albumin/Globulin Ratio 0.9 (0.8-1.8); Bilirubin, Total 1.2 mg/dL (0.1-1.0); Bun/Creatinine Ratio 20.7 (12.0-20.0); Calcium, Blood 10.8 mg/dL (8.5-10.1); Creatinine, Blood 1.35 mg/dL (0.60-1.20); Globulin, Blood 2.4 g/dL (2.2-4.0); Potassium, Blood 2.8 mmol/L (3.5-5.5); Total Protein, Blood 4.6 g/dL (6.4-8.2)
--- NOTE | 2019-04-10 18:06 | NUR ---
SHIFT SUMMARY NO ACUTE CHANGES. PATIENT DENIES PAIN, NAUSEA, AND SHORTNESS OF BREATH. PATIENT HAS HAD POOR APPETITE AND PO INTAKE. PATIENT UP SBA W/GAIT BELT TO BATHROOM. PT/OT WORKED WITH PATIENT TODAY. PATIENT HAD CT OF HEAD AND ABDOMEN TODAY. FAMILY AT BEDSIDE. CALL LIGHT IN REACH.
--- NOTE | 2019-04-11 00:03 | NUR ---
04/10/19 2350 PT ADMITTED TO ROOM 359 PER CART FROM ER.
--- NOTE | 2019-04-11 04:27 | NUR ---
SHIFT SUMMARY: 83 Y/O SLENDER MALE RESTED COMFORTABLY ALL SHIFT, DENIES PAIN OR NAUSEA OR DYSPNEA, ABLE TO FOLLOW ALL SIMPLE VERBAL COMMANDS, BED ALARM APPLIED, BED LOW POSITION WITH CALL LIGHT AT SIDE.
[2019-04-11 05:19] LABS: BASOPHILS ABSOLUTE AUTO 0.03 K/mm3 (0.00-0.23); BASOPHILS PERCENT AUTO 1 % (0-2); EOSINOPHILS ABSOLUTE AUTO 0.07 K/mm3 (0.00-0.68); EOSINOPHILS PERCENT AUTO 3 % (0-6); Hematocrit 29.6 % (37.0-53.0); Hemoglobin 10.1 g/dL (13.5-17.5); LYMPHOCYTES ABSOLUTE AUTO 0.55 K/mm3 (0.84-5.20); LYMPHOCYTES PERCENT AUTO 22 % (21-46); MONOCYTES PERCENT AUTO 16 % (4-13); Mean Corpuscular HGB 33.9 pg (26.0-34.0); Mean Corpuscular HGB Conc 34.1 g/dL (31.5-36.5); Mean Corpuscular Volume 99 fL (80-100); Mean Platelet Volume 10.5 fL (9.1-12.4); NEUTROPHILS ABSOLUTE AUTO 1.27 K/mm3 (1.96-9.15); NEUTROPHILS PERCENT AUTO 51 % (41-73); Platelet Count 252 K/mm3 (150-400); RDW Coefficient Variation 15.3 % (11.7-14.2); RDW Standard Deviation 55.7 fL (35.1-46.3); Red Blood Cell Count 2.98 M/mm3 (4.30-5.90)
[2019-04-11 05:20] LABS: IMMATURE GRAN ABSOLUTE AUTO 0.18 K/mm3 (0.00-0.10); IMMATURE GRAN PERCENT AUTO 7 % (0-1)
[2019-04-11 05:43] LABS: Albumin, Blood 2.1 g/dL (3.4-5.0); Albumin/Globulin Ratio 0.8 (0.8-1.8); Bilirubin, Total 0.8 mg/dL (0.1-1.0); Bun/Creatinine Ratio 18.5 (12.0-20.0); Creatinine, Blood 1.3 mg/dL (0.60-1.20); Globulin, Blood 2.6 g/dL (2.2-4.0); Potassium, Blood 2.8 mmol/L (3.5-5.5); Total Protein, Blood 4.7 g/dL (6.4-8.2)
--- NOTE | 2019-04-11 17:16 | NUR ---
SHIFT SUMMARY NO ACUTE CHANGES. PATIENT DENIES PAIN, NAUSEA, AND SHORTNESSS OF BREATH. PATIENT UP FOR MEALS IN CHAIR. FAMILY AT BEDSIDE. OT WORKED WITH PATIENT. POTASSIUM INFUSING. CALL LIGHT IN REACH.
--- NOTE | 2019-04-12 04:39 | NUR ---
SHIFT SUMMARY: 83 Y/O MALE RESTED COMFORTABLY ALL SHIFT, DENIES PAIN OR NAUSEA, OCCASIONALLY UP TO VOID IN BATHROOM X 1 STANDBY ASSIST, K+ PIGGYBACKS INFUSED ALL SHIFT AFTER LOW LAB POTASSIUM OF 2.8 ON 04/11/19, ALERT AND ORIENTED X 4, BED ALARM APPLIED, BED LOW POSITION AND CALL LIGHT AT SIDE.
[2019-04-12 05:59] LABS: BASOPHILS ABSOLUTE AUTO 0.06 K/mm3 (0.00-0.23); BASOPHILS PERCENT AUTO 2 % (0-2); EOSINOPHILS ABSOLUTE AUTO 0.08 K/mm3 (0.00-0.68); EOSINOPHILS PERCENT AUTO 3 % (0-6); Hematocrit 31.4 % (37.0-53.0); Hemoglobin 10.2 g/dL (13.5-17.5); IMMATURE GRAN ABSOLUTE AUTO 0.17 K/mm3 (0.00-0.10); IMMATURE GRAN PERCENT AUTO 6 % (0-1); LYMPHOCYTES ABSOLUTE AUTO 0.69 K/mm3 (0.84-5.20); LYMPHOCYTES PERCENT AUTO 25 % (21-46); MONOCYTES ABSOLUTE AUTO 0.47 K/mm3 (0.16-1.47); MONOCYTES PERCENT AUTO 17 % (4-13); Mean Corpuscular HGB Conc 32.5 g/dL (31.5-36.5); Mean Platelet Volume 10.8 fL (9.1-12.4); NEUTROPHILS ABSOLUTE AUTO 1.27 K/mm3 (1.96-9.15); NEUTROPHILS PERCENT AUTO 46 % (41-73); Platelet Count 239 K/mm3 (150-400); RDW Coefficient Variation 15.6 % (11.7-14.2); RDW Standard Deviation 58.8 fL (35.1-46.3); White Blood Cell Count 2.74 K/mm3 (4.00-11.30)
[2019-04-12 06:04] LABS: Mean Corpuscular Volume 105 fL (80-100)
[2019-04-12 06:22] LABS: Alanine Aminotransfer (ALT/SGP 19 U/L (12-78); Albumin, Blood 2.1 g/dL (3.4-5.0); Albumin/Globulin Ratio 0.8 (0.8-1.8); Alk Phos 121 U/L (50-136); Anion Gap 6 mmol/L (6-16); Aspartate Aminotrans (AST/SGOT 29 U/L (12-37); Bilirubin, Total 1.1 mg/dL (0.1-1.0); Blood Urea Nitrogen 28 mg/dL (8-24); Bun/Creatinine Ratio 18.8 (12.0-20.0); CO2, Blood 25 mmol/L (21-32); Calcium, Blood 11.1 mg/dL (8.5-10.1); Chloride, Blood 114 mmol/L (98-108); Creatinine, Blood 1.49 mg/dL (0.60-1.20); Globulin, Blood 2.5 g/dL (2.2-4.0); Glomerular Filtration Rate 48 (60-); Glucose, Blood 103 mg/dL (70-99); Sodium, Blood 145 mmol/L (136-145); Total Protein, Blood 4.6 g/dL (6.4-8.2); Vancomycin, Random 10.3 ug/mL
--- NOTE | 2019-04-12 16:54 | NUR ---
SHIFT SUMMARY: NO ACUTE CHANGES TO REPORT THIS SHIFT. PT A&O; CALM AND COOPERATIVE WITH CARE. UP TO BATHROOM c 1-ASSIST. NO C/O PAIN OR NAUSEA THIS SHIFT. PULMONOLOGY (DR ABREU) CONSULTED THIS SHIFT. IV ABX CONTINUING. WCTM.
--- NOTE | 2019-04-13 04:36 | NUR ---
SHIFT SUMMARY- PT. A&O W/INTERMITTENT CONFUSION. SLEPT ON/OFF T/O THE SHIFT. NO APPARENT DISTRESS NOTED. RT ARM IV LEAKING. NEW IV ACCESS OBTAINED, PT. TOLERATED WELL. PT USING THE URINAL AT THE BEDSIDE W/ASSISTANCE. ATTENDS IN PLACE FOR SOME INCONTINENCE. DENIED ANY PAIN OR DISCOMFORT. CALL LIGHT WITHIN REACH, SIDE RAILS UP X2, AND BED ALARM ON FOR SAFETY. WILL CONT TO MONITOR.
[2019-04-13 05:19] LABS: Hematocrit 30.5 % (37.0-53.0); Hemoglobin 10.2 g/dL (13.5-17.5); Mean Corpuscular HGB 34.6 pg (26.0-34.0); Mean Corpuscular HGB Conc 33.4 g/dL (31.5-36.5); Mean Corpuscular Volume 103 fL (80-100); Mean Platelet Volume 10.7 fL (9.1-12.4); Platelet Count 242 K/mm3 (150-400); RDW Coefficient Variation 15.6 % (11.7-14.2); RDW Standard Deviation 58.4 fL (35.1-46.3); Red Blood Cell Count 2.95 M/mm3 (4.30-5.90); White Blood Cell Count 2.65 K/mm3 (4.00-11.30)
[2019-04-13 05:46] LABS: Alanine Aminotransfer (ALT/SGP 16 U/L (12-78); Albumin/Globulin Ratio 0.8 (0.8-1.8); Alk Phos 123 U/L (50-136); Anion Gap 7 mmol/L (6-16); Aspartate Aminotrans (AST/SGOT 27 U/L (12-37); Bilirubin, Total 1.2 mg/dL (0.1-1.0); Blood Urea Nitrogen 27 mg/dL (8-24); Bun/Creatinine Ratio 16.3 (12.0-20.0); CO2, Blood 26 mmol/L (21-32); Calcium, Blood 10.9 mg/dL (8.5-10.1); Chloride, Blood 115 mmol/L (98-108); Creatinine, Blood 1.66 mg/dL (0.60-1.20); Globulin, Blood 2.6 g/dL (2.2-4.0); Glomerular Filtration Rate 42 (60-); Glucose, Blood 95 mg/dL (70-99); Potassium, Blood 3.3 mmol/L (3.5-5.5); Sodium, Blood 148 mmol/L (136-145); Total Protein, Blood 4.6 g/dL (6.4-8.2); Vancomycin, Random 15.1 ug/mL
[2019-04-13 05:50] LABS: BASOPHILS ABSOLUTE MAN 0.05 K/mm3 (0.00-0.23); BASOPHILS PERCENT MAN 2 % (0-2); EOSINOPHILS ABSOLUTE MAN 0.15 K/mm3 (0.00-0.68); EOSINOPHILS PERCENT MAN 6 % (0-6); LYMPHOCYTES % ATYPICAL MANUAL 4 % (0-0); LYMPHOCYTES ABSOLUTE MAN 0.53 K/mm3 (0.84-5.20); LYMPHOCYTES PERCENT MAN 16 % (21-46); METAMYELOCYTE ABSOLUTE MAN 0.02 K/mm3 (0.00-0.00); METAMYELOCYTE PERCENT MAN 1 % (0-0); MONOCYTES ABSOLUTE MAN 0.45 K/mm3 (0.16-1.47); MONOCYTES PERCENT MAN 17 % (4-13); NEUTROPHILS ABSOLUTE MAN 1.43 K/mm3 (1.96-9.15); SEG NEUTROPHILS PERCENT MAN 54 % (41-73); TOTAL CELLS COUNTED 100
--- NOTE | 2019-04-13 13:52 | NUR ---
Initial Visit: Pt admitted with fatigue, hypokalemia, anorexia with weight loss. 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 Pt appears weak, cachetic. He is not answering questions. His family is vocal, concerned, appears to be in crisis. He has lost 28 pounds in the last 1 month. Answered questions regarding comfort care and hospice options. Family has spoken to Dr. Das and would like to review pt's condition priviately before making decisions. Pt does not appear to be in distress. Family assisted to the bathroom and back without difficulty. Pt ambulates with assistance from family members. Will remain available. Nurse updated on conversation.
--- NOTE | 2019-04-13 19:58 | NUR ---
SUMM- PT ALERT TO SELF, FAMILY AND PLACE. SLEEPY, DOSING ON/OFF THROUGHOUT THE DAY. PT FAILED BARIUM SWALLOW AND MADE NPO LATE MORNING. DR NEELY HAD IN DEPTH DISCUSSION WITH FAMILY ABOUT PT'S LUNGS STATUS AND PT'S LIKELY ASPIRATING, PT'S WEITHG LOSS AND OPTIONS. LATE EVENING DR MALIK SPOKE WITH FAMILY AND GAVE A DIFFERENT TAKE ON PT'S STATUS, GIVING FAMILY A DIFFERENT PICTURE OF PT'S PROGNOSIS AND WHAT DIRECTION TO GO. FAMILY FELT CONFLICTED AND ASKED TO SPEEK WITH DR NEELY. RN CALLED THIS PM AND DR SULLIVAN FOR TONIGHT PUTTING PT ON FLUIDS AND DISCUSSING PT WITH DR GILLETTE AND COMING TOGETHER WITH FAMILY IN AM TO DEVELOP A BETTER PLAN. FAMILY FELT COMFORTABLE WITH THIS PLAN. PT IS RESTING QUIET IN BED, EASILY AROUSABLE BUT SLEEPY. LG FAMILY AT THE BEDSIDE INVLVED IN CARE.
--- NOTE | 2019-04-14 05:20 | NUR ---
SHIFT SUMMARY AOX SELF AND FAMILY. LS CLEAR, DENIES SOB ON RA. NO C/O NAUSEA OR PAIN. D5W WITH 20KCL @ 75 IN L FA. VSS. STRICT NPO. SBA. USES URINAL, INC AT TIMES. SKIN TEAR R UA, DRESSING C/D/I. PLAN FOR CXR TODAY.
[2019-04-14 06:04] LABS: Vancomycin, Random 18.8 ug/mL
--- NOTE | 2019-04-14 10:39 | NUR ---
History, Chart, Medications and Allergies reviewed before start of procedure. Patient confirms NPO status and agrees with scheduled surgery. Pre-Op teaching done. Pt verbalizes understanding. Lung sounds decreased t/o.
--- NOTE | 2019-04-14 10:49 | NUR ---
04/14/19 Clementina9 Glory Bird History, Chart, Medications and Allergies reviewed before start of procedure. Patient confirms NPO status and agrees with scheduled surgery. 3-LEAD EKG REVIEWED WITH PHYSICIAN PRIOR TO START OF PROCEDURE. PATIENT DETERMINED TO BE ASA APPROPRIATE FOR PROPOFOL SEDATION PRIOR TO START OF PROCEDURE BY DR LAZARO. MONITOR INTACT WITH CONTINUOUS PULSE OXIMETRY AND INTERMITTENT BP.
--- NOTE | 2019-04-14 12:43 | NUR ---
PATIENT IS BACK FROM [facility]. POST OP VITALS ARE STABLE. PATIENT IS SLEEPING BUT IS AROUSABLE. IS AT THE BEDSIDE. PATIENT IS NPO
[2019-04-14 13:14] LABS: Performing Lab SYMBIODX; Test Name FLOW
--- NOTE | 2019-04-14 18:19 | NUR ---
PATIENT IS ALERT AND SLEEPY/AROUSABLE. HE KNOWS HIS FAMILY, SELF, FOLLOWS DIRECTIONS AND KNOWS HE IS IN [place]. PATIENT HAD A BRONCOSCOPY TODAY. HE HAD A DOBHOFF PLACED FOR FEEDINGS. ORDERS FOR JEVITY 1.5 AT 25 ML/HR WITH WATER 30 ML/HR Q4H. FAMILY IS AT THE BEDSIDE. WILL CONTINUE TO MONITOR.
[2019-04-14 22:06] LABS: HBSAG SCREEN Negative (Negative); HEP B CORE AB, TOT Negative (Negative); HEP C VIRUS AB <0.1 (0.0-0.9)
--- NOTE | 2019-04-15 01:56 | NUR ---
FEEDING INCREASED TO 35ML/HR @ 0130. BLOOD GLUCOSE 138. PT TOLERATING WELL.
[2019-04-15 05:10] LABS: Hematocrit 30.6 % (37.0-53.0); Hemoglobin 10.2 g/dL (13.5-17.5); Mean Corpuscular HGB 34.1 pg (26.0-34.0); Mean Corpuscular HGB Conc 33.3 g/dL (31.5-36.5); Mean Corpuscular Volume 102 fL (80-100); Mean Platelet Volume 10.5 fL (9.1-12.4); Platelet Count 231 K/mm3 (150-400); RDW Coefficient Variation 15.4 % (11.7-14.2); RDW Standard Deviation 57.3 fL (35.1-46.3); Red Blood Cell Count 2.99 M/mm3 (4.30-5.90); White Blood Cell Count 2.09 K/mm3 (4.00-11.30)
--- NOTE | 2019-04-15 05:27 | NUR ---
SHIFT SUMMARY NO ASSESSMENT CHANGES. DENIES SOB, NAUSEA, AND PAIN. L FA IV HAS D5W W/KCL @ 75. R UA SKIN TEAR DRESSING IS C/D/I. VSS ON . FEEDING @ 35ML/HR SINCE 129. BLOOD GLUCOSE STABLE. TOLERATES WELL.
[2019-04-15 05:36] LABS: BAND PERCENT MAN 1 % (0-8); BASOPHILS ABSOLUTE MAN 0.06 K/mm3 (0.00-0.23); BASOPHILS PERCENT MAN 3 % (0-2); EOSINOPHILS ABSOLUTE MAN 0.14 K/mm3 (0.00-0.68); EOSINOPHILS PERCENT MAN 7 % (0-6); LYMPHOCYTES % ATYPICAL MANUAL 2 % (0-0); LYMPHOCYTES ABSOLUTE MAN 0.43 K/mm3 (0.84-5.20); LYMPHOCYTES PERCENT MAN 19 % (21-46); MONOCYTES ABSOLUTE MAN 0.43 K/mm3 (0.16-1.47); MONOCYTES PERCENT MAN 21 % (4-13); MYELOCYTE ABSOLUTE MAN 0.02 K/mm3 (0.00-0.00); MYELOCYTE PERCENT MAN 1 % (0-0); NEUTROPHILS ABSOLUTE MAN 0.98 K/mm3 (1.96-9.15); SEG NEUTROPHILS PERCENT MAN 46 % (41-73); TOTAL CELLS COUNTED 100
[2019-04-15 05:37] LABS: Magnesium, Blood 1.9 mg/dL (1.6-2.4)
[2019-04-15 05:39] LABS: Alanine Aminotransfer (ALT/SGP 17 U/L (12-78); Albumin, Blood 1.9 g/dL (3.4-5.0); Albumin/Globulin Ratio 0.7 (0.8-1.8); Alk Phos 122 U/L (50-136); Anion Gap 9 mmol/L (6-16); Aspartate Aminotrans (AST/SGOT 25 U/L (12-37); Bilirubin, Total 0.9 mg/dL (0.1-1.0); Blood Urea Nitrogen 22 mg/dL (8-24); Bun/Creatinine Ratio 13.1 (12.0-20.0); CO2, Blood 25 mmol/L (21-32); Calcium, Blood 10.1 mg/dL (8.5-10.1); Chloride, Blood 116 mmol/L (98-108); Creatinine, Blood 1.68 mg/dL (0.60-1.20); Globulin, Blood 2.8 g/dL (2.2-4.0); Glomerular Filtration Rate 42 (60-); Glucose, Blood 128 mg/dL (70-99); Potassium, Blood 2.7 mmol/L (3.5-5.5); Sodium, Blood 150 mmol/L (136-145); Total Protein, Blood 4.7 g/dL (6.4-8.2); Vancomycin, Random 12.1 ug/mL
[2019-04-15 16:18] LABS: Bun/Creatinine Ratio 12.7 (12.0-20.0); Calcium, Blood 9.9 mg/dL (8.5-10.1); Creatinine, Blood 1.57 mg/dL (0.60-1.20); Potassium, Blood 3.2 mmol/L (3.5-5.5)
--- NOTE | 2019-04-15 18:10 | NUR ---
PATIENT IS ALERT AND ORIENTED AND COOPERATIVE WITH CARE. DOBHOFF NG TUBE IS PATENT. CONTINUOUS TUBE FEEDINGS AT 45 ML/HR. TOLERATING TUBE FEEDINGS WELL. FAMILY IS ALWAYS AT THE BEDSIDE. HE AMBULATES TO THE BATHROOM. DR. NEELY HAS ASKED THE PATIENT AND HIS FAMILY IF THEY WOULD LIKE HIM TO TRANSFER TO [facility]. FAMILY IS DEBATING THIS AND SAID THEY WILL HAVE A DECISION BY TOMORROW. WILL CONTINUE TO MONITOR
[2019-04-16 05:10] LABS: Hematocrit 31.7 % (37.0-53.0); Hemoglobin 10.4 g/dL (13.5-17.5); Mean Corpuscular HGB 34.8 pg (26.0-34.0); Mean Corpuscular HGB Conc 32.8 g/dL (31.5-36.5); Mean Platelet Volume 10.9 fL (9.1-12.4); Platelet Count 237 K/mm3 (150-400); RDW Coefficient Variation 15.6 % (11.7-14.2); Red Blood Cell Count 2.99 M/mm3 (4.30-5.90); White Blood Cell Count 1.96 K/mm3 (4.00-11.30)
[2019-04-16 05:11] LABS: Mean Corpuscular Volume 106 fL (80-100)
[2019-04-16 05:31] LABS: Anion Gap 8 mmol/L (6-16); Blood Urea Nitrogen 21 mg/dL (8-24); CO2, Blood 24 mmol/L (21-32); Calcium, Blood 10.2 mg/dL (8.5-10.1); Chloride, Blood 119 mmol/L (98-108); Creatinine, Blood 1.62 mg/dL (0.60-1.20); Glomerular Filtration Rate 43 (60-); Glucose, Blood 149 mg/dL (70-99); Potassium, Blood 3.3 mmol/L (3.5-5.5); Sodium, Blood 151 mmol/L (136-145); Vancomycin, Random 16.4 ug/mL
[2019-04-16 05:34] LABS: BAND PERCENT MAN 2 % (0-8); BASOPHILS ABSOLUTE MAN 0.09 K/mm3 (0.00-0.23); BASOPHILS PERCENT MAN 5 % (0-2); EOSINOPHILS ABSOLUTE MAN 0.11 K/mm3 (0.00-0.68); EOSINOPHILS PERCENT MAN 6 % (0-6); LYMPHOCYTES % ATYPICAL MANUAL 1 % (0-0); LYMPHOCYTES ABSOLUTE MAN 0.39 K/mm3 (0.84-5.20); LYMPHOCYTES PERCENT MAN 19 % (21-46); MONOCYTES ABSOLUTE MAN 0.27 K/mm3 (0.16-1.47); MONOCYTES PERCENT MAN 14 % (4-13); NEUTROPHILS ABSOLUTE MAN 1.07 K/mm3 (1.96-9.15); SEG NEUTROPHILS PERCENT MAN 53 % (41-73); TOTAL CELLS COUNTED 100
--- NOTE | 2019-04-16 06:08 | NUR ---
SHIFT SUMMARY AOX2. LS CLEAR, DENIES SOB. NO C/O NAUSEA OR PAIN. SBA. L FA IS WEEPING. IV IN R FA INFUSING. CONT FEEDING NOW AT GOAL RATE OF 55. BLOOD GLUCOSE HAS BEEN STABLE. BRONCH CULTURES STILL PENDING. WAITING FOR FAMILY DECISION ABOUT TRANSFER TO [facility].
--- NOTE | 2019-04-16 14:01 | NUR ---
Clinical Visit: Pt appears to be asleep. He is not arousing to conversation. Family states that he is "asleep most of the time." They reports that he doesn't appear to be in any pain. Family is waiting on the results of lung broncoscopy before making decisions on transfer to [facility]. They state that pt was just up there for a prolonged stay and they would rather not put him back up there, since he did not like being away from [place]. Furthermore, they make decisions together as a family unit. There are 5 children in addition to his . They have not called the child that lives out of town today: they are waiting to hear the results of the testing before presenting options. Conference with Dr. Das. Plans for Dr Ernandez consult.
--- NOTE | 2019-04-16 16:49 | NUR ---
PATIENT CONTINUES TO SLEEP MOST OF THE SHIFT. FAMILY IS PRESENT THROUGH OUT THE DAY. PATIENT HAS HAD NO COMPLAINTS OR ACUTE CHANGES. CALL LIGHT WITHIN REACH.
--- NOTE | 2019-04-17 04:56 | NUR ---
SHIFT SUMMARY A/O, ABLE TO MAKE NEEDS KNOWN. FAMILY INVOLVED IN CARE AND @ BEDSIDE. REMAINS ON CONTINUOUS FEEDINGS. TUBING CHANGED THIS SHIFT. CONTINUES WITH IV FLUIDS; INFUSING W/O COMPLICATION. UP /c 1P ASSIST PERIODICALLY T/O SHIFT. NO ACUTE CHANGES NOTED. VSS. APPEARED TO REST OVERNIGHT. BED REMAINS IN LOWEST POSITION. ALARM ON. CALL LIGHT AND BELONGINGS WITHIN REACH. WCTM. REPORT TO ONCOMING RN.
[2019-04-17 05:27] LABS: Hematocrit 28.9 % (37.0-53.0); Hemoglobin 9.5 g/dL (13.5-17.5); Mean Corpuscular HGB 34.8 pg (26.0-34.0); Mean Corpuscular HGB Conc 32.9 g/dL (31.5-36.5); Mean Corpuscular Volume 106 fL (80-100); Mean Platelet Volume 10.7 fL (9.1-12.4); Platelet Count 204 K/mm3 (150-400); RDW Coefficient Variation 15.8 % (11.7-14.2); RDW Standard Deviation 61.2 fL (35.1-46.3); Red Blood Cell Count 2.73 M/mm3 (4.30-5.90); White Blood Cell Count 2.47 K/mm3 (4.00-11.30)
[2019-04-17 05:50] LABS: BAND PERCENT MAN 8 % (0-8); BASOPHILS ABSOLUTE MAN 0.12 K/mm3 (0.00-0.23); BASOPHILS PERCENT MAN 5 % (0-2); EOSINOPHILS ABSOLUTE MAN 0.32 K/mm3 (0.00-0.68); EOSINOPHILS PERCENT MAN 13 % (0-6); LYMPHOCYTES ABSOLUTE MAN 0.24 K/mm3 (0.84-5.20); LYMPHOCYTES PERCENT MAN 10 % (21-46); METAMYELOCYTE ABSOLUTE MAN 0.02 K/mm3 (0.00-0.00); METAMYELOCYTE PERCENT MAN 1 % (0-0); MONOCYTES ABSOLUTE MAN 0.34 K/mm3 (0.16-1.47); MONOCYTES PERCENT MAN 14 % (4-13); MYELOCYTE ABSOLUTE MAN 0.09 K/mm3 (0.00-0.00); MYELOCYTE PERCENT MAN 4 % (0-0); SEG NEUTROPHILS PERCENT MAN 45 % (41-73); TOTAL CELLS COUNTED 100
[2019-04-17 05:59] LABS: Anion Gap 6 mmol/L (6-16); Blood Urea Nitrogen 22 mg/dL (8-24); Bun/Creatinine Ratio 15.6 (12.0-20.0); CO2, Blood 27 mmol/L (21-32); Calcium, Blood 9.8 mg/dL (8.5-10.1); Chloride, Blood 119 mmol/L (98-108); Creatinine, Blood 1.41 mg/dL (0.60-1.20); Glomerular Filtration Rate 51 (60-); Glucose, Blood 148 mg/dL (70-99); Potassium, Blood 3.1 mmol/L (3.5-5.5); Sodium, Blood 152 mmol/L (136-145); Vancomycin, Random 10.5 ug/mL
[2019-04-17 10:33] LABS: Result SEE LABOUT RESULTS
--- NOTE | 2019-04-17 17:38 | NUR ---
PATIENT PUT ON COMFORT CARE THIS SHIFT AND TO DC HOME ON HOSPICE.
[2019-04-18 06:08] LABS: IMMUNOGLOBULIN A, QN, SERUM 249 mg/dL (61-437); IMMUNOGLOBULIN G, QN, SERUM 369 mg/dL (700-1600); IMMUNOGLOBULIN M, QN, SERUM 7 mg/dL (15-143)
--- NOTE | 2019-04-18 06:14 | NUR ---
SHIFT SUMMARY: Family at bedside until about 2229. Bed alarm sounded on several occasions due to patient independently getting OOB to use the restroom. Continent of B/B. BUE with +4 wheeping edema. Dressing intact to right inner bicep skin abrasion. Skin very fragile to BUE. No shortness of breath observed. Denies pain. Call light within reach, bed low. No complaints and has appeared to sleep most of the night.
--- NOTE | 2019-04-18 09:30 | NUR ---
Pt visit this AM. Pt resting in bed and appears comfortable. Denies pain at this time. Family at bedside and are agreeable with plan to discharge home with [facility] today. No concerns reported at this time. Spoke with bedside nurse Ricky and discussed case. Spoke with Dr Moyer and discussed case. Called and confirmed with [facility] of plan to admit Pt onto services today. Palliative Care will remain available.
--- NOTE | 2019-04-18 09:32 | NUR ---
PATIENT DID NOT EAT BREAKFAST THIS SHIFT DUE TO BEING NPO AT THIS TIME. RN NOTIFIED.
[2019-04-18] MEDS ORDERED: SENN187 PO (09:37)
--- NOTE | 2019-04-18 10:09 | NUR ---
PT DCD HOME ON HOSPICE WITH [facility] WITH AND FAMILY. ALL RX AND INSTRUCTONS REVIEWED WITH . ALL PERSONAL BELONGINGS SENT WITH PT FAMILY. FAMILY TO TRANSPORT PT IN PRIVATE CAR TO HOME. PT HAS NO C/O OR S/S OF PAIN OR DISCOMFORT AND IS RESTING IN BED WITH SEVERAL FAMILY MEMBERS AT BEDSIDE.
== END 2019-04-18 10:44 | disposition hospice, home (50) | DRG 177 ==
LOC: ER 18:14 → MEDS 04-09 00:24 → ENPENDDIS 04-18 10:36 → MEDS 04-18 10:44
PROVIDERS: Emergency Medicine; Family Medicine; Internal Medicine Critical Care Medicine; Internal Medicine Hematology & Oncology; Nurse Practitioner Acute Care; Student in an Organized Health Care Education/Training Program; ADMIT Internal Medicine
PROC: 0B9C8ZX Drainage of Right Upper Lung Lobe, Via Natural or Artificial Opening Endoscopic, Diagnostic (ICD-10-PCS; principal; 2019-04-14 10:30)
DX: J15.1 Pneumonia due to Pseudomonas (principal); D66 Hereditary factor VIII deficiency; E43 Unspecified severe protein-calorie malnutrition; G92 Toxic encephalopathy; N17.9 Acute kidney failure, unspecified; Z68.1 Body mass index [BMI] 19.9 or less, adult; R64 Cachexia; E87.1 Hypo-osmolality and hyponatremia; Z85.46 Personal history of malignant neoplasm of prostate; E87.6 Hypokalemia; E78.5 Hyperlipidemia, unspecified; J44.9 Chronic obstructive pulmonary disease, unspecified; Z87.891 Personal history of nicotine dependence; E86.0 Dehydration; D70.9 Neutropenia, unspecified; R63.0 Anorexia; E83.52 Hypercalcemia; Z90.79 Acquired absence of other genital organ(s); R62.7 Adult failure to thrive; R13.10 Dysphagia, unspecified; Z51.5 Encounter for palliative care; B95.2 Enterococcus as the cause of diseases classified elsewhere; T37.5X5A Adverse effect of antiviral drugs, initial encounter; Y92.9 Unspecified place or not applicable
CPT/HCPCS: 36415; 70450; 70553; 71045; 71046; 71260; 74018; 74177; 74230; 80048; 80053; 80202; 81001; 82024; 82140; 82330; 82533; 82784; 82947; 83605; 83690; 83735; 83970; 84100; 84145; 85025; 86317; 86704; 86708; 86803; 87015; 87070; 87077; 87186; 87205; 87340; 88108; 88184; 88185; 88312; 92610; 92611; 93005; 93010; 94760; 94762; 96361; 96365; 96366; 96367; 97110; 97116; 97162; 97166; 97530; 97535; 99284-25; A9577; J0696; J1447; J1650; J2543; J2704; J3370; J3475; J3480; J7030; J7050; J7120; J7512; Q9967

== ENCOUNTER → 2019-04-08 | Outpatient (CLI) | payer OTHER ==
[~2019-04-08] MED LIST changes: +ACET325 PO; +BARACLUDE PO; +Citalopram HBr10 MG PO; +SENN187 PO; +VALACYCLOVIR1000 MG PO
[2019-04-08 16:50] LABS: Albumin, Blood 2.2 g/dL (3.4-5.0); Albumin/Globulin Ratio 0.8 (0.8-1.8); Bilirubin, Total 1.4 mg/dL (0.1-1.0); Bun/Creatinine Ratio 19.7 (12.0-20.0); Calcium, Blood 11.3 mg/dL (8.5-10.1); Creatinine, Blood 1.78 mg/dL (0.60-1.20); Globulin, Blood 2.7 g/dL (2.2-4.0); Potassium, Blood 2.6 mmol/L (3.5-5.5); Thyroid Stimulating Hormone 2.474 uIU/mL (0.360-4.800); Total Protein, Blood 4.9 g/dL (6.4-8.2)
== END | disposition home or self-care (01) ==
LOC: LAB SHORT 16:25 → LAB EV 16:25
PROVIDERS: Physician Assistant
DX: R53.83 Other fatigue (principal)
CPT/HCPCS: 80053; 84443